=== PATIENT | female | born 1930 | race Caucasian/White ===

== ENCOUNTER → 2016-07-05 | Emergency (ER) | payer OTHER, BC ==
[2016-07-05 12:16] VITALS: BP 131/76; PULSE 60; TEMP 98; BMI 32.3
--- NOTE | 2016-07-05 13:06 | PDOC ---
History of Present Illness - General History Source: Patient Exam Limitations: No Limitations - History of Present Illness Initial Comments: 07/05/16 13:20 The patient is an 85 year old female with a significant past medical history of dementia, sent from [facility] to the Emergency Department with right ulna fracture. The patient is a poor historian due to dementia. The patients mcc was called and they are unsure of what happened. They report that the fall was unwitnessed. <Mamta Farah - Last Filed: 07/05/16 13:43> <Patria Rosa - Last Filed: 07/05/16 14:18> - General Chief Complaint: Injury Stated Complaint: BONE FRACTURE Past History <Mamta Farah - Last Filed: 07/05/16 13:43> - Past Medical History Cardiac Disorders: Yes (On Lasix) Dementia: Yes HTN: Yes - Surgical History Abdominal Surgery: No Appendectomy: No Cardiac Surgery: No Cholecystectomy: No Gastric Stapling: No GI Surgery: No Lung Surgery: No Neurologic Surgery: No Orthopedic Surgery: Yes - Immunization History Td Vaccination: No TDAP Vaccination: No Immunization Up to Date: Yes - Psycho/Social/Smoking Cessation Hx Suicidal Ideation: No Smoking Status: No Smoking History: Unknown if ever smoked Years of Tobacco Use: 0 Have you smoked in the past 12 months: No Number of Cigarettes Smoked Daily: 0 Cigars Per Day: 0 Information on smoking cessation initiated: No Hx Alcohol Use: No Drug/Substance Use Hx: No Hx Substance Use Treatment: No <Patria Rosa - Last Filed: 07/05/16 14:18> - Past Medical History Allergies/Adverse Reactions: Allergies Allergy/AdvReac Type Severity Reaction Status Date / Time No Known Allergies Allergy Unverified 10/28/12 11:31 Home Medications: Ambulatory Orders Docusate Sodium 100 mg PO DAILY 07/05/16 Furosemide [Lasix -] 40 mg PO DAILY 07/05/16 Trazodone HCl 50 mg PO HS 07/05/16 Review of Systems - Review of Systems Able to Perform ROS?: No (dementia) <Mamta Farah - Last Filed: 07/05/16 13:43> *Physical Exam - Vital Signs Last Vital Signs Temp Pulse Resp BP Pulse Ox 98.0 F 60 20 131/76 98 07/05/16 12:09 07/05/16 12:09 07/05/16 12:09 07/05/16 12:09 07/05/16 12:09 - Physical Exam Comments: 07/05/16 13:20 GENERAL: Well developed, well nourished. Awake. In no acute distress. HEENT: Normocephalic, atraumatic. PERRLA, EOMI. No conjunctival pallor. Sclera are non- icteric. Moist mucous membranes. Oropharynx is clear. NECK: Supple. Full ROM. No JVD. Carotid pulses 2+ and symmetric, without bruits. No thyromegaly. No lymphadenopathy. CARDIOVASCULAR: Regular rate and rhythm. No murmurs, rubs, or gallops. Distal pulses are 2+ and symmetric. PULMONARY: No evidence of respiratory distress. Lungs clear to auscultation bilaterally. No wheezing, rales or rhonchi. ABDOMINAL: Soft. Non-tender. Non-distended. No rebound or guarding. No organomegaly. Normoactive bowel sounds. MUSCULOSKELETAL Normal range of motion at all joints. No bony deformities. No CVA tenderness. No spinal tenderness. EXTREMITIES: Right distal forearm ecchymosis laterally. Tenderness to palpation. No obvious deformity. Neurovascularly intact. Full range of motion. Shoulder nontender and full range of motion. 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 No edema. No calf tenderness. SKIN: Warm and dry. Normal capillary refill. No rashes. No jaundice. NEUROLOGICAL: Alert, awake, appropriate. No deficits to light touch and temperature in face, upper extremities and lower extremities. No motor deficits in the in face, upper extremities and lower extremities. Normoreflexic in the upper and lower extremities. PSYCHIATRIC: Cooperative. Good eye contact. Appropriate mood and affect. <Mamta Farah - Last Filed: 07/05/16 13:43> - Vital Signs Last Vital Signs Temp Pulse Resp BP Pulse Ox 98.0 F 60 20 131/76 98 07/05/16 12:09 07/05/16 12:09 07/05/16 12:09 07/05/16 12:09 07/05/16 12:09 <Patria Rosa - Last Filed: 07/05/16 14:18> ED Treatment Course - RADIOLOGY Radiograph Interpretation: 07/05/16 13:43 XRay of wrist As reviewed by Dr. Eric Jones IMPRESSION: Distal ulnar fracture. <Mamta Farah - Last Filed: 07/05/16 13:43> Medical Decision Making - Medical Decision Making 07/05/16 13:04 85 yo F h/o dementia, htn in [facility] here today for fractured ulna. per nursing at facility, unsure what happened to pt. no witnessed fall, did not fall out of bed. was noted to have tenderness on exam so ordred xray, found to have distal ulna fx. 07/05/16 14:14minimally displaced right distal ulnar fracture. splinted in volar gutter splint. will transfer back to [facility]. follow up the [facility] in one week. <Patria Rosa - Last Filed: 07/05/16 14:18> *DC/Admit/Observation/Transfer - Attestations Scribe Attestion: 07/05/16 13:23 Documentation prepared by Mamta Farah, acting as emergency medical technician basic for Patria Rosa MD. <Mamta Farah - Last Filed: 07/05/16 13:43> - Discharge Dispostion Admit: No <Patria Rosa - Last Filed: 07/05/16 14:18> Diagnosis at time of Disposition: Ulnar fracture - Discharge Dispostion Disposition: [facility] - Referrals Referrals: Wil Lowry MD [Staff Physician] - - Patient Instructions Additional Instructions: wear sling on arm for comfort. wear splint until follow up with orthopedics. you can follow up with dr lowry see referral number. return for any problems or concerns. you can take tylenol 500 mg every 6 hours as needed for pain.
== END ==
LOC: JER 11:52
PROC: 2W3CX1Z Immobilization of Right Lower Arm using Splint (ICD-10-PCS; principal; 2016-07-05)
DX: S52.691A Other fracture of lower end of right ulna, initial encounter for closed fracture (principal); W19.XXXA Unspecified fall, initial encounter; Y93.9 Activity, unspecified; Y92.129 Unspecified place in nursing home as the place of occurrence of the external cause; I10 Essential (primary) hypertension; F03.90 Unspecified dementia, unspecified severity, without behavioral disturbance, psychotic disturbance, mood disturbance, and anxiety
CPT/HCPCS: 29125; 73110-TC-RT; 99282-25

== ENCOUNTER 2016-11-11 14:25 | Observation (INO) | payer OTHER, BC ==
--- NOTE | 2016-11-11 14:46 | PDOC ---
History of Present Illness - General Stated Complaint: PAIN Time Seen by Provider: 11/11/16 14:45 - History of Present Illness Initial Comments: 86 year old with CHF and dementia presenting from [facility] for worsening LLE edema. This has been ongoing since 10/09/16 with a fracture negative xray on 10/10/16 and Doppler on 10/10/16 showing extensive superficial ad deep vein thrombophlebitis. She hasn't been improving on Coumadin and Tramadol so the physician at [facility] would like to ave her further evaluated. She is severely demented so she cannot provide any history and this was all obtained through the documents sent with her. 11/11/16 17:01 Past History - Past Medical History Allergies/Adverse Reactions: Allergies Allergy/AdvReac Type Severity Reaction Status Date / Time No Known Allergies Allergy Unverified 10/28/12 11:31 Home Medications: Ambulatory Orders Docusate Sodium 100 mg PO DAILY 07/05/16 Furosemide [Lasix -] 40 mg PO DAILY 07/05/16 Trazodone HCl 50 mg PO HS 07/05/16 Cardiac Disorders: Yes (On Lasix) Dementia: Yes HTN: Yes - Surgical History Abdominal Surgery: No Appendectomy: No Cardiac Surgery: No Cholecystectomy: No Gastric Stapling: No GI Surgery: No Lung Surgery: No Neurologic Surgery: No Orthopedic Surgery: Yes - Immunization History Td Vaccination: No TDAP Vaccination: No Immunization Up to Date: Yes - Suicide/Smoking/Psychosocial Hx Smoking Status: No Smoking History: Unknown if ever smoked Years of Tobacco Use: 0 Have you smoked in the past 12 months: No Number of Cigarettes Smoked Daily: 0 Cigars Per Day: 0 Hx Alcohol Use: No Drug/Substance Use Hx: No Hx Substance Use Treatment: No Review of Systems - Review of Systems Able to Perform ROS?: No *Physical Exam - Physical Exam General Appearance: Yes: Nourished, Appropriately Dressed, Apparent Distress ( Intermittenly uncooperative and yelling.) HEENT: positive: EOMI, FIDEL, Normal Voice Neck: positive: Trachea midline, Normal Thyroid, Supple. negative: Tender, Rigid Respiratory/Chest: positive: Lungs Clear, Normal Breath Sounds. negative: Chest Tender, Respiratory Distress, Accessory Muscle Use Cardiovascular: positive: Regular Rhythm, Regular Rate Gastrointestinal/Abdominal: positive: Normal Bowel Sounds, Tender (Diffusely tender but unclear), Flat, Soft Extremity: positive: Pedal Edema (Bilateral pedal 2+ pitting edema in the RLE to the knee. 3+, 4+ Pitting edema in the RLE to the knee with tenderness in the calf and on the meial aspect of her upper thigh. ), Swelling, Calf Tenderness. negative: Normal Inspection Integumentary: positive: Normal Color, Dry, Warm Neurologic: positive: Alert, Confused, Disoriented. negative: Fully Oriented ( Completely demented), Normal Mood/Affect ED Treatment Course - LABORATORY CBC & Chemistry Diagram: 11/11/16 18:04 11/11/16 18:04 Medical Decision Making - Medical Decision Making 86 year old female with history of thrombophlebitis in her LLE presenting with continued pain and selling in her LLE despite Coumadin therapy and Tramadol. Her DVT scan was positive here. HEr PT/INR are therapeutic. 11/11/16 19:39 Patient started on heparin drip and admitted under Dr. Becker for further therapy and assessment. 11/11/16 20:42 *DC/Admit/Observation/Transfer Diagnosis at time of Disposition: Thrombophlebitis - Discharge Dispostion Condition at time of disposition: Stable Admit: Yes
[2016-11-11] MEDS ORDERED: HALOPERIDOL LACTATE 5 MG/ML IM ONE (15:43)
[2016-11-11] MEDS ORDERED: HALOPERIDOL LACTATE 5 MG/ML ONE (15:50)
--- NOTE | 2016-11-11 16:19 | PDOC ---
Attending Attestation - Resident Resident Name: Cb Mccord - ED Attending Attestation I have performed the following: I have examined & evaluated the patient, The case was reviewed & discussed with the resident, I agree w/resident's findings & plan, Exceptions are as noted - Medical Decision Making 11/11/16 16:18 A portion of this note was written by my scribe, under my supervision. Vital Signs Temp Pulse Resp BP Pulse Ox 97.4 F L 80 18 137/79 99 11/11/16 14:45 11/11/16 14:45 11/11/16 14:45 11/11/16 14:45 11/11/16 14:45 86 yo F c/ hx of dementia sent in for admission for LLE DVT. The patient has extensive proximal DVT, where was attempted at correction to be treated with coumadin. However, given the extensiveness, pt was sent in. Unable to obtain a history from patient given her dementia. Labs, ultrasound, anticoagulation, and admit. <Loco Garcia - Last Filed: 11/11/16 16:17> - HPI HPI: 11/11/16 16:19 86 yr old female, pmhx of DVT (on coumadin), dementia and HTN, who presents to the emergency [facility] from [facility] with swelling to the LLE since 10/09/16. She had a negative X Ray on 10/10/16. Doppler on 10/10/16 showed a LLE DVT and she has been on coumadin and tramadol for the pain. They sent her into the emergency room today because the swelling would not subside. Cannot obtain history from the patient secondary to dementia. - Physicial Exam PE: 11/11/16 16:19 GENERAL: Awake, alert, in no acute distress HEAD: No signs of trauma EYES: PERRLA, EOMI, sclera anicteric, conjunctiva clear ENT: Auricles normal inspection, hearing grossly normal, nares patent, oropharynx clear without exudates. Moist mucosa NECK: Normal ROM, supple, no lymphadenopathy, JVD, or masses LUNGS: Breath sounds equal, clear to auscultation bilaterally. No wheezes, and no crackles HEART: Regular rate and rhythm, normal S1 and S2, no murmurs, rubs or gallops ABDOMEN: Soft, nontender, normoactive bowel sounds. No guarding, no rebound. No masses EXTREMITIES: 3+ pitting edema of the LLE. Swollen left calf. Normal RLE. NEUROLOGICAL: Cranial nerves II through XII grossly intact. Normal speech, normal gait SKIN: Warm, Dry, normal turgor, no rashes or lesions noted. <Magalie Verma - Last Filed: 11/11/16 16:20>
[2016-11-11] MEDS ORDERED: LORazepam 2 MG/ML SDV VIAL ONE (17:06)
[2016-11-11] MEDS ORDERED: traZODone HCL 50 MG TABLET (FP) PO ONE (17:31)
[2016-11-11 18:36] LABS: BASOPHIL 0.2 % (0-2.0); EOSINOPHIL 2.8 % (0-4.5); MCH 28.6 pg (25.7-33.7); MCHC 32.9 g/dl (32.0-36.0); MEAN CELL VOLUME 86.9 fl (80-96); MEAN PLT VOLUME 7.8 fl (7.5-11.1); NEUTROPHILS 67.8 % (42.8-82.8); PLATELET COUNT 325 K/MM3 (134-434); RDW 15.4 % (11.6-15.6); WHITE BLOOD COUNT 7.9 K/mm3 (4.0-10.0)
[2016-11-11 18:59] LABS: INR 2.84 (0.82-1.09); PROTHROMBIN TIME (PATIENT) 31.9 SEC (9.98-11.88)
[2016-11-11 19:05] LABS: ALK PHOS 183 U/L (45-117); ANION GAP 6 (8-16); BILIRUBIN,TOTAL 0.5 mg/dL (0.2-1.0); CALCIUM 8.8 mg/dL (8.5-10.1); CO2 30 mmol/L (21-32); CREATININE 0.6 mg/dL (0.55-1.02); GLUCOSE,RANDOM 100 mg/dL (74-106); SGOT/AST 18 U/L (15-37); SGPT/ALT 22 U/L (12-78); TOT PROT 6.8 g/dl (6.4-8.2)
[2016-11-11] MEDS ORDERED: HEPARIN NA (PORCINE) 5,000 UNITS/ML 1ML VIAL IVPUSH PRN ×2 (20:14)
[2016-11-11] MEDS ORDERED: HEPARIN NA (PORCINE) 5,000 UNITS/ML 1ML VIAL ONE (20:40)
[2016-11-11] MEDS ORDERED: HEPARIN INFUSION - 500 ML IVPB ONE (20:41)
[2016-11-11] MEDS: HEPARIN - 25,000 UNIT in SODIUM CHLORIDE 495 ML IV SCH (21:32)
[2016-11-12] MEDS ORDERED: MAGNESIUM HYDROX 2400MG/30ML ORAL SUSPENSION 30 ML CUP PO PRN (02:30)
[2016-11-12] MEDS: HEPARIN - 25,000 UNIT in SODIUM CHLORIDE 495 ML IV SCH (06:51)
[2016-11-12 07:27] VITALS: BMI 38.8
--- NOTE | 2016-11-12 09:45 | HP ---
Admitting History and Physical - Primary Care Physician PCP: Remedios Mckay - Admission Chief Complaint: dvt History of Present Illness: Sent from [facility] for persistent pain to left leg Found to have DVT on 09/14/16-- started on Coumadin - she was sent here because she had persistent pain and swelling to left leg despite Coumadin and Lasix. 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 Cardiovascular: Yes: HTN Psych: Yes: Bipolar, Depression - Advance Directives Advance Directives: Yes: Health Care Proxy - Smoking History Smoking history: Unknown if ever smoked Have you smoked in the past 12 months: No Aproximately how many cigarettes per day: 0 - Alcohol/Substance Use Hx Alcohol Use: No Home Medications - Allergies Allergies/Adverse Reactions: Allergies Allergy/AdvReac Type Severity Reaction Status Date / Time No Known Allergies Allergy Unverified 10/28/12 11:31 - Home Medications Home Medications: Ambulatory Orders Docusate Sodium 200 mg PO HS 07/05/16 Trazodone HCl 50 mg PO HS 07/05/16 Acetaminophen [Tylenol] 650 mg PO Q6H PRN 11/11/16 Ascorbic Acid [Vitamin C] 500 mg PO DAILY 11/11/16 Calcium Carbonate [Oyster Shell Calcium] 500 mg PO DAILY 11/11/16 Cholecalciferol (Vitamin D3) [Vitamin D3 -] 1,000 unit PO DAILY 11/11/16 Magnesium Hydrox 2400MG/30Ml [Milk of Magnesia -] 30 ml PO DAILY PRN 11/11/16 Melatonin 1 mg PO DAILY 11/11/16 Multivit with Iron-Minerals [Compete] 1 tab PO DAILY 11/11/16 Sennosides [Senna] 2 tab PO HS 11/11/16 Warfarin Sodium [Coumadin] 2 mg PO DAILY 11/11/16 Review of Systems Unable to obtain ROS, reason: dementia Physical Examination Vital Signs: Vital Signs Temperature 97.4 F L 11/11/16 23:30 Pulse Rate 103 H 11/11/16 23:30 Respiratory Rate 18 11/12/16 06:00 Blood Pressure 129/63 11/11/16 23:30 O2 Sat by Pulse Oximetry (%) 94 L 11/12/16 06:00 Constitutional: Yes: No Distress, Calm Cardiovascular: Yes: Regular Rate and Rhythm Respiratory: Yes: CTA Bilaterally Gastrointestinal: Yes: Normal Bowel Sounds, Soft, Abdomen, Obese. No: Tenderness Extremities: Yes: Calf Tenderness (left), Erythema Edema: Yes Edema: LLE: 2+ Psychiatric: Yes: Alert Labs: Laboratory Last Values WBC 7.9 K/mm3 (4.0-10.0) D 11/11/16 18:04 RBC 4.59 M/mm3 (3.60-5.2) D 11/11/16 18:04 Hgb 13.1 GM/dL (10.7-15.3) D 11/11/16 18:04 Hct 39.9 % (32.4-45.2) D 11/11/16 18:04 MCV 86.9 fl (80-96) 11/11/16 18:04 MCH 28.6 pg (25.7-33.7) 11/11/16 18:04 MCHC 32.9 g/dl (32.0-36.0) 11/11/16 18:04 RDW 15.4 % (11.6-15.6) 11/11/16 18:04 Plt Count 325 K/MM3 (134-434) D 11/11/16 18:04 MPV 7.8 fl (7.5-11.1) 11/11/16 18:04 Neutrophils % 67.8 % (42.8-82.8) 11/11/16 18:04 Lymphocytes % 23.0 % (8-40) 11/11/16 18:04 Monocytes % 6.2 % (3.8-10.2) 11/11/16 18:04 Eosinophils % 2.8 % (0-4.5) 11/11/16 18:04 Basophils % 0.2 % (0-2.0) 11/11/16 18:04 PT with INR 27.80 SEC (9.98-11.88) H 11/12/16 11:12 INR 2.48 (0.82-1.09) H 11/12/16 11:12 PTT (Actin FS) 82.4 SECONDS (26.9-34.4) H D 11/12/16 04:00 Sodium 139 mmol/L (136-145) 11/11/16 18:04 Potassium 4.2 mmol/L (3.5-5.1) 11/11/16 18:04 Chloride 103 mmol/L (98-107) 11/11/16 18:04 Carbon Dioxide 30 mmol/L (21-32) D 11/11/16 18:04 Anion Gap 6 (8-16) L 11/11/16 18:04 BUN 23 mg/dL (7-18) H 11/11/16 18:04 Creatinine 0.6 mg/dL (0.55-1.02) D 11/11/16 18:04 Creat Clearance w eGFR > 60 (>60) 11/11/16 18:04 Random Glucose 100 mg/dL (74-106) 11/11/16 18:04 Calcium 8.8 mg/dL (8.5-10.1) 11/11/16 18:04 Total Bilirubin 0.5 mg/dL (0.2-1.0) D 11/11/16 18:04 AST 18 U/L (15-37) D 11/11/16 18:04 ALT 22 U/L (12-78) D 11/11/16 18:04 Alkaline Phosphatase 183 U/L (45-117) H D 11/11/16 18:04 C-Reactive Protein 4.0 MG/DL (0.00-0.3) H 11/11/16 18:04 B-Natriuretic Peptide 192.07 pg/ml (5-450) 11/11/16 18:04 Total Protein 6.8 g/dl (6.4-8.2) 11/11/16 18:04 Albumin 3.0 g/dl (3.4-5.0) L D 11/11/16 18:04 Imaging - Results Ultrasound: Report Reviewed EKG: Image Reviewed (NSR) Problem List - Problems (1) Thrombophlebitis Code(s): I80.9 - PHLEBITIS AND THROMBOPHLEBITIS OF UNSPECIFIED SITE (2) Dvt femoral (deep venous thrombosis) Code(s): I82.419 - ACUTE EMBOLISM AND THROMBOSIS OF UNSPECIFIED FEMORAL VEIN (3) DVT femoral (deep venous thrombosis) with thrombophlebitis Code(s): I82.419 - ACUTE EMBOLISM AND THROMBOSIS OF UNSPECIFIED FEMORAL VEIN (4) DVT of axillary vein, acute left Code(s): I82.A12 - ACUTE EMBOLISM AND THROMBOSIS OF LEFT AXILLARY VEIN Assessment/Plan plan Pt on Coumadin already placed on Heparin GTT in ER INR is therapeutic--- dc Heparin drip continue with Coumadin consult with Vascular surgeon
[2016-11-12 11:25] LABS: INR 2.48 (0.82-1.09); PROTHROMBIN TIME (PATIENT) 27.8 SEC (9.98-11.88)
[2016-11-12] MEDS ORDERED: LORazepam 2 MG/ML SDV VIAL IVPUSH PRN (11:25)
[2016-11-12] MEDS: QUEtiapine FUMARATE 25 MG TABLET (FP) PO SCH (11:53)
--- NOTE | 2016-11-12 13:05 | EKG ---
Test Reason : Blood Pressure : / mmHG Vent. Rate : 075 BPM Atrial Rate : 075 BPM P-R Int : 166 ms QRS Dur : 082 ms QT Int : 424 ms P-R-T Axes : 048 042 060 degrees QTc Int : 473 ms POOR DATA QUALITY, INTERPRETATION MAY BE ADVERSELY AFFECTED NORMAL SINUS RHYTHM NORMAL ECG WHEN COMPARED WITH ECG OF 14-JUN-2009 00:44, NONSPECIFIC T WAVE ABNORMALITY NOW EVIDENT IN ANTERIOR LEADS Confirmed by TISH DESHPANDE, CALLIE ([id number]) on 11/12/2016 1:05:09 PM Referred By: Confirmed By:CALLIE WINSTON MD
--- NOTE | 2016-11-12 13:24 | CONSULT ---
Consult - Alcohol/Substance Use Hx Alcohol Use: No - Smoking History Smoking history: Unknown if ever smoked Have you smoked in the past 12 months: No Aproximately how many cigarettes per day: 0 Home Medications - Allergies Allergies/Adverse Reactions: Allergies Allergy/AdvReac Type Severity Reaction Status Date / Time No Known Allergies Allergy Unverified 10/28/12 11:31 - Home Medications Home Medications: Ambulatory Orders Docusate Sodium 200 mg PO HS 07/05/16 Trazodone HCl 50 mg PO HS 07/05/16 Acetaminophen [Tylenol] 650 mg PO Q6H PRN 11/11/16 Ascorbic Acid [Vitamin C] 500 mg PO DAILY 11/11/16 Calcium Carbonate [Oyster Shell Calcium] 500 mg PO DAILY 11/11/16 Cholecalciferol (Vitamin D3) [Vitamin D3 -] 1,000 unit PO DAILY 11/11/16 Magnesium Hydrox 2400MG/30Ml [Milk of Magnesia -] 30 ml PO DAILY PRN 11/11/16 Melatonin 1 mg PO DAILY 11/11/16 Multivit with Iron-Minerals [Compete] 1 tab PO DAILY 11/11/16 Sennosides [Senna] 2 tab PO HS 11/11/16 Warfarin Sodium [Coumadin] 2 mg PO DAILY 11/11/16 Physical Exam Vital Signs: Vital Signs Temperature 98.3 F 11/12/16 10:56 Pulse Rate 92 H 11/12/16 10:56 Respiratory Rate 18 11/12/16 10:56 Blood Pressure 112/83 11/12/16 10:56 O2 Sat by Pulse Oximetry (%) 94 L 11/12/16 06:00 Assessment/Plan VAscular Surgery Sent from [facility] for persistent pain to left leg Found to have DVT on 09/14/16-- started on Coumadin - she was sent here because she had persistent pain and swelling to left leg despite Coumadin and Lasix. She had repeat sono done which showed extensive DVT on left leg and thrombophlebitis Started on Heparin drip here - Advance Directives Advance Directives: Yes: Health Care Proxy - Smoking History Smoking history: Unknown if ever smoked Have you smoked in the past 12 months: No Aproximately how many cigarettes per day: 0 - Alcohol/Substance Use Hx Alcohol Use: No Home Medications - Allergies Allergies/Adverse Reactions: Allergies Allergy/AdvReac Type Severity Reaction Status Date / Time No Known Allergies Allergy Unverified 10/28/12 11:31 - Home Medications Home Medications: Ambulatory Orders Docusate Sodium 200 mg PO HS 07/05/16 Trazodone HCl 50 mg PO HS 07/05/16 Acetaminophen [Tylenol] 650 mg PO Q6H PRN 11/11/16 Ascorbic Acid [Vitamin C] 500 mg PO DAILY 11/11/16 Calcium Carbonate [Oyster Shell Calcium] 500 mg PO DAILY 11/11/16 Cholecalciferol (Vitamin D3) [Vitamin D3 -] 1,000 unit PO DAILY 11/11/16 Magnesium Hydrox 2400MG/30Ml [Milk of Magnesia -] 30 ml PO DAILY PRN 11/11/16 Melatonin 1 mg PO DAILY 11/11/16 Multivit with Iron-Minerals [Compete] 1 tab PO DAILY 11/11/16 Sennosides [Senna] 2 tab PO HS 11/11/16 Warfarin Sodium [Coumadin] 2 mg PO DAILY 11/11/16 PE Head - NC/AT Lung - cTA Heart - RRR abd -soft,nt,nd, ext - warm, pink. Palpalble pulses. LLE warm,. no pain could be elicited A/P Left CFV, DFV DVT. 1. Continue AC. IV heparin to coumadin. No other treatment is necessary. Leg looks stable. AC for 6 months. Howard Pickett DO
[2016-11-12] MEDS ORDERED: WARFARIN NA 2 MG TABLET (UD) PO SCH (18:00)
[2016-11-12] MEDS ORDERED: traZODone HCL 50 MG TABLET (FP) PO SCH (22:00)
[2016-11-12] MEDS ORDERED: SENNOSIDES 8.6MG TABLET (FP) PO SCH (22:00)
[2016-11-12] MEDS ORDERED: PT OWN MED DRAWER 7, Y5N ONE (22:16)
[2016-11-13 07:28] LABS: MCH 28.3 pg (25.7-33.7); MCHC 32.6 g/dl (32.0-36.0); MEAN CELL VOLUME 86.7 fl (80-96); MEAN PLT VOLUME 7.9 fl (7.5-11.1); PLATELET COUNT 297 K/MM3 (134-434); RDW 15.6 % (11.6-15.6)
[2016-11-13 07:48] LABS: INR 2.17 (0.82-1.09); PROTHROMBIN TIME (PATIENT) 24.3 SEC (9.98-11.88)
--- NOTE | 2016-11-13 09:45 | DS ---
Physical Examination Vital Signs: Vital Signs Temperature 97.1 F L 11/13/16 06:00 Pulse Rate 85 11/13/16 06:00 Respiratory Rate 20 11/13/16 06:00 Blood Pressure 150/90 11/13/16 06:00 O2 Sat by Pulse Oximetry (%) 94 L 11/13/16 00:00 Constitutional: Yes: No Distress, Calm Cardiovascular: Yes: Regular Rate and Rhythm Respiratory: Yes: CTA Bilaterally Gastrointestinal: Yes: Normal Bowel Sounds, Soft, Abdomen, Obese Edema: Yes Labs: CBC, BMP 11/13/16 06:05 Discharge Summary Reason For Visit: THROMBOPHLEBITIS Current Active Problems DVT femoral (deep venous thrombosis) with thrombophlebitis (Acute) DVT of axillary vein, acute left (Acute) Dvt femoral (deep venous thrombosis) (Acute) Thrombophlebitis (Acute) Hospital Course: DVT and thrombophlebitis seen by Vascular On Coumadin INR therapeutic no further interventions pt stable for dc to NH Condition: Stable - Instructions Referrals: Edenilson Walters [Primary Care Provider] - Disposition: [facility] - Home Medications Comprehensive Discharge Medication List: Ambulatory Orders Docusate Sodium 200 mg PO HS 07/05/16 Trazodone HCl 50 mg PO HS 07/05/16 Acetaminophen [Tylenol] 650 mg PO Q6H PRN 11/11/16 Ascorbic Acid [Vitamin C] 500 mg PO DAILY 11/11/16 Calcium Carbonate [Oyster Shell Calcium] 500 mg PO DAILY 11/11/16 Cholecalciferol (Vitamin D3) [Vitamin D3 -] 1,000 unit PO DAILY 11/11/16 Magnesium Hydrox 2400MG/30Ml [Milk of Magnesia -] 30 ml PO DAILY PRN 11/11/16 Melatonin 1 mg PO DAILY 11/11/16 Multivit with Iron-Minerals [Compete] 1 tab PO DAILY 11/11/16 Sennosides [Senna] 2 tab PO HS 11/11/16 Warfarin Sodium [Coumadin] 2 mg PO DAILY 11/11/16
[2016-11-13] MEDS: QUEtiapine FUMARATE 25 MG TABLET (FP) PO SCH (10:01)
[2016-11-13 14:11] VITALS: BP 123/53; PULSE 98; TEMP 97.5
== END 2016-11-13 11:59 ==
LOC: JER 14:25 → JERBED 20:45 → J5S 23:00
PROVIDERS: ADMIT Internal Medicine; ATTEND Internal Medicine
PROC: 3E023GC Introduction of Other Therapeutic Substance into Muscle, Percutaneous Approach (ICD-10-PCS; principal; 2016-11-11)
DX: I80.9 Phlebitis and thrombophlebitis of unspecified site (principal); I50.9 Heart failure, unspecified; I82.419 Acute embolism and thrombosis of unspecified femoral vein; I82.A12 Acute embolism and thrombosis of left axillary vein; I10 Essential (primary) hypertension; F03.90 Unspecified dementia, unspecified severity, without behavioral disturbance, psychotic disturbance, mood disturbance, and anxiety; Z79.01 Long term (current) use of anticoagulants
CPT/HCPCS: 36415; 80053; 83880; 85025; 85027; 85610; 85730; 86140; 93005; 93010; 93971-TC; 96372; 99284-25; G0378; J1644

== ENCOUNTER 2016-12-21 09:25 | Inpatient (IN) | payer OTHER, BC ==
--- NOTE | 2016-12-21 10:16 | PDOC ---
History of Present Illness - General Chief Complaint: Rectal Bleed Stated Complaint: RECTAL BLEED Time Seen by Provider: 12/21/16 09:43 - History of Present Illness Initial Comments: 12/21/16 10:15 86 F with h/o CHF, dementia, and DVT on coumadin, presenting to ER with rectal bleeding. Pt was sent from [facility] with blood noted in her diaper. Son is at bedside and states that he [facility] a [facility] that she started having blood in her stool and also had a "lump in her side". He is unable to report any additional history. Pt herself is unable to contribute any history 2/2 severe dementia. Past History - Past Medical History Allergies/Adverse Reactions: Allergies Allergy/AdvReac Type Severity Reaction Status Date / Time No Known Allergies Allergy Unverified 12/21/16 09:31 Home Medications: Ambulatory Orders Docusate Sodium 200 mg PO HS 07/05/16 Trazodone HCl 25 mg PO BID 07/05/16 Ascorbic Acid [Vitamin C] 500 mg PO DAILY 11/11/16 Calcium Carbonate [Oyster Shell Calcium] 500 mg PO DAILY 11/11/16 Cholecalciferol (Vitamin D3) [Vitamin D3 -] 1,000 unit PO DAILY 11/11/16 Magnesium Hydrox 2400MG/30Ml [Milk of Magnesia -] 30 ml PO DAILY PRN 11/11/16 Melatonin 1 mg PO DAILY 11/11/16 Multivit with Iron-Minerals [Compete] 1 tab PO DAILY 11/11/16 Sennosides [Senna] 2 tab PO HS 11/11/16 Warfarin Sodium [Coumadin] 2 mg PO DAILY 11/11/16 Cardiac Disorders: Yes (was on Lasix) COPD: No Dementia: Yes HTN: Yes - Surgical History Abdominal Surgery: No Appendectomy: No Cardiac Surgery: No Cholecystectomy: No Gastric Stapling: No GI Surgery: No Lung Surgery: No Neurologic Surgery: No Orthopedic Surgery: Yes - Immunization History Td Vaccination: No TDAP Vaccination: No Immunization Up to Date: Yes - Suicide/Smoking/Psychosocial Hx Smoking Status: No Smoking History: Unknown if ever smoked Years of Tobacco Use: 0 Have you smoked in the past 12 months: No Number of Cigarettes Smoked Daily: 0 Cigars Per Day: 0 Information on smoking cessation initiated: No Hx Alcohol Use: No Drug/Substance Use Hx: No Hx Substance Use Treatment: No Review of Systems - Review of Systems Able to Perform ROS?: No *Physical Exam - Vital Signs Last Vital Signs Temp Pulse Resp BP Pulse Ox 97.5 F L 86 16 121/101 96 12/21/16 09:31 12/21/16 09:31 12/21/16 09:31 12/21/16 09:31 12/21/16 09:31 - Physical Exam Comments: 12/21/16 10:20 "GENERAL: Awake, alert, in no acute distress HEAD: No signs of trauma EYES: PERRLA, EOMI, sclera anicteric, conjunctiva clear ENT: Auricles normal inspection, hearing grossly normal, nares patent, oropharynx clear without exudates. Moist mucosa NECK: Nontender, no stepoffs, Normal ROM, supple, no lymphadenopathy, JVD, or masses LUNGS: Breath sounds equal, clear to auscultation bilaterally. No wheezes, and no crackles HEART: Regular rate and rhythm, normal S1 and S2, no murmurs, rubs or gallops ABDOMEN: Obese, palpable mass on R side of abdomen, abdomen diffusely tender to palpation, no rebound/guarding RECTAL: Brown stool with red streaks EXTREMITIES: Normal range of motion, no edema. No clubbing or cyanosis. No cords, erythema, or tenderness NEUROLOGICAL: Cranial nerves II through XII intact. 5/5 strength and sensation in all extremities, Normal speech, normal gait SKIN: Warm, Dry, normal turgor, no rashes or lesions noted. ED Treatment Course - LABORATORY CBC & Chemistry Diagram: 12/21/16 10:10 12/21/16 10:10 - RADIOLOGY Radiology Studies Ordered: Category Date Time Status ABDOMEN & PELVIS CT WITH CONTR [CT] Stat CT Scan 12/21/16 10:12 Ordered Medical Decision Making - Medical Decision Making 12/21/16 10:20 86 F with rectal bleed on coumadin, also found to have diffuse abdominal tenderness and palpable mass that is concerning for hernia. Pt's rectal exam notable for brown stool with red streaks. Likely lower GI bleed. Pt with no melena to suggest upper GI source. - Labs, T&S, coags - CTAP - Surgery consult 12/21/16 13:32 CT reveals stercoral colitis. No evidence of incarcerated hernia. Fecal impaction also noted on CT. However, pt actively stooling during my exam. Rectal exam did not reveal hard impacted stool. 12/21/16 14:19 Dr. Becker accepts admission. GI consult placed to Dr. Brown Case discussed in detail with admitting physician including history, physical exam and ancillary studies. Admitting physician has assumed care for the patient and will follow all pending diagnostics and complete the evaluation and treatment. *DC/Admit/Observation/Transfer Diagnosis at time of Disposition: GI bleed - Discharge Dispostion Admit: Yes - Referrals Referrals: Edenilson Walters [Primary Care Provider] - - Patient Instructions - Post Discharge Activity - Attestations Physician Attestion: 12/21/16 14:19 I, Dr. Wil Dixon MD, attest that this document has been prepared under my direction and personally reviewed by me in its entirety. I further attest, that it accurately reflects all work, treatment, procedures and medical decision -making performed by me.
[2016-12-21 10:32] LABS: BASOPHIL 0.1 % (0-2.0); EOSINOPHIL 1.4 % (0-4.5); MCH 27.6 pg (25.7-33.7); MCHC 32.1 g/dl (32.0-36.0); MEAN CELL VOLUME 85.9 fl (80-96); MEAN PLT VOLUME 8.2 fl (7.5-11.1); NEUTROPHILS 84.9 % (42.8-82.8); PLATELET COUNT 451 K/MM3 (134-434); RDW 15.3 % (11.6-15.6); WHITE BLOOD COUNT 14.2 K/mm3 (4.0-10.0)
[2016-12-21 10:53] LABS: INR 2.32 (0.82-1.09); PROTHROMBIN TIME (PATIENT) 26.2 SEC (9.98-11.88)
[2016-12-21 10:58] LABS: ALBUMIN 3.1 g/dl (3.4-5.0); ANION GAP 11 (8-16); BILIRUBIN,TOTAL 0.6 mg/dL (0.2-1.0); CALCIUM 8.9 mg/dL (8.5-10.1); CO2 26 mmol/L (21-32); CREATININE 0.8 mg/dL (0.55-1.02); GLUCOSE,RANDOM 107 mg/dL (74-106); SGOT/AST 17 U/L (15-37); SGPT/ALT 23 U/L (12-78); TOT PROT 7.1 g/dl (6.4-8.2)
[2016-12-21 10:59] LABS: CPK 63 IU/L (26-192); TROPONIN I < 0.02 ng/ml (0.00-0.05)
[2016-12-21 10:59] LABS: ALK PHOS 222 U/L (45-117)
[2016-12-21] MEDS ORDERED: SODIUM CHLORIDE 1,000 ML IV SCH (11:45)
[2016-12-21 15:52] VITALS: BMI 32.2
--- NOTE | 2016-12-21 16:36 | CON.GI ---
Consult Consult Specialty:: Gastroenterology Referred by:: Dr Becker Reason for Consultation:: Rectal bleeding - History of Present Illness Chief Complaint: The patient has OMS and cannot offer any significant history History of Present Illness: 86F with OMS is transferred from the [facility] after an episode of rectal bleeding. The son informed the ER staff that he got a call from the [place] reporting that Suzanne had rectal bleeding and a " lump in her abdomen". Suzanne is conversant but cannot give pertinent responses. CT scan reveals a fecal impaction involving the rectum up to the sigmoid which is compressing her left ureter and causing left hydronephrosis. She is on Coumadin for ? DVT. Much of the history was obtained from the medical record and her son,Matt. He believes that she had a colonoscopy remotely. 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 - has not ambulated since then - Alcohol/Substance Use Hx Alcohol Use: Yes (rare but in the past) - Smoking History Smoking history: Former smoker Have you smoked in the past 12 months: No Aproximately how many cigarettes per day: 0 If you are a former smoker, when did you quit?: quit age 62 - Social History Usual Living Arrangement: [facility] ADL: Support Services 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 Place of : [facility] History of Recent Travel: No Home Medications - Allergies Allergies/Adverse Reactions: Allergies Allergy/AdvReac Type Severity Reaction Status Date / Time No Known Allergies Allergy Unverified 12/21/16 09:31 - Home Medications Home Medications: Ambulatory Orders Docusate Sodium 200 mg PO HS 07/05/16 Trazodone HCl 25 mg PO BID 07/05/16 Ascorbic Acid [Vitamin C] 500 mg PO DAILY 11/11/16 Calcium Carbonate [Oyster Shell Calcium] 500 mg PO DAILY 11/11/16 Cholecalciferol (Vitamin D3) [Vitamin D3 -] 1,000 unit PO DAILY 11/11/16 Magnesium Hydrox 2400MG/30Ml [Milk of Magnesia -] 30 ml PO DAILY PRN 11/11/16 Melatonin 1 mg PO DAILY 11/11/16 Multivit with Iron-Minerals [Compete] 1 tab PO DAILY 11/11/16 Sennosides [Senna] 2 tab PO HS 11/11/16 Warfarin Sodium [Coumadin] 2 mg PO DAILY 11/11/16 Family Disease History - Family Disease History Other Family History: no cancer Review of Systems Findings/Remarks: Patient has OMS Physical Exam-GI Vital Signs: Vital Signs Temperature 97.5 F L 12/21/16 09:31 Pulse Rate 99 H 12/21/16 15:38 Respiratory Rate 18 12/21/16 15:38 Blood Pressure 121/60 12/21/16 15:38 O2 Sat by Pulse Oximetry (%) 97 12/21/16 15:38 Laboratory Tests 12/21/16 12/21/16 12/21/16 10:10 10:10 10:10 WBC 14.2 H D Hgb 13.7 D PT with INR 26.20 H INR 2.32 H BUN 19 H Creatinine 0.8 D Total Bilirubin 0.6 AST 17 ALT 23 Alkaline Phosphatase 222 H D Albumin 3.1 L CBC,CMP WBC 14.2 K/mm3 (4.0-10.0) H D 12/21/16 10:10 RBC 4.97 M/mm3 (3.60-5.2) 12/21/16 10:10 Hgb 13.7 GM/dL (10.7-15.3) D 12/21/16 10:10 Hct 42.7 % (32.4-45.2) D 12/21/16 10:10 MCV 85.9 fl (80-96) 12/21/16 10:10 MCH 27.6 pg (25.7-33.7) 12/21/16 10:10 MCHC 32.1 g/dl (32.0-36.0) 12/21/16 10:10 RDW 15.3 % (11.6-15.6) 12/21/16 10:10 Plt Count 451 K/MM3 (134-434) H D 12/21/16 10:10 MPV 8.2 fl (7.5-11.1) 12/21/16 10:10 Neutrophils % 84.9 % (42.8-82.8) H D 12/21/16 10:10 Lymphocytes % 7.1 % (8-40) L D 12/21/16 10:10 Monocytes % 6.5 % (3.8-10.2) 12/21/16 10:10 Eosinophils % 1.4 % (0-4.5) 12/21/16 10:10 Basophils % 0.1 % (0-2.0) 12/21/16 10:10 Sodium 140 mmol/L (136-145) 12/21/16 10:10 Potassium 4.2 mmol/L (3.5-5.1) 12/21/16 10:10 Chloride 103 mmol/L (98-107) 12/21/16 10:10 Carbon Dioxide 26 mmol/L (21-32) 12/21/16 10:10 Anion Gap 11 (8-16) 12/21/16 10:10 BUN 19 mg/dL (7-18) H 12/21/16 10:10 Creatinine 0.8 mg/dL (0.55-1.02) D 12/21/16 10:10 Creat Clearance w eGFR > 60 (>60) 12/21/16 10:10 Random Glucose 107 mg/dL (74-106) H 12/21/16 10:10 Lactic Acid 2.6 mmol/L (0.4-2.0) H* 12/21/16 10:10 Calcium 8.9 mg/dL (8.5-10.1) 12/21/16 10:10 Total Bilirubin 0.6 mg/dL (0.2-1.0) 12/21/16 10:10 AST 17 U/L (15-37) 12/21/16 10:10 ALT 23 U/L (12-78) 12/21/16 10:10 Alkaline Phosphatase 222 U/L (45-117) H D 12/21/16 10:10 Creatine Kinase 63 IU/L (26-192) 12/21/16 09:56 Troponin I < 0.02 ng/ml (0.00-0.05) 12/21/16 09:56 Total Protein 7.1 g/dl (6.4-8.2) 12/21/16 10:10 Albumin 3.1 g/dl (3.4-5.0) L 12/21/16 10:10 Current Medications Generic Name Dose Route Start Last Admin Trade Name Delmis PRN Reason Stop Dose Admin Sodium Chloride 1,000 mls @ 125 mls/hr 12/21/16 11:45 12/21/16 12:04 Normal Saline - IV 125 mls/hr ASDIR WILMER Administration Constitutional: Yes: Calm Eyes: Yes: WNL HENT: Yes: WNL Neck: Yes: Supple Cardiovascular: Yes: Regular Rate and Rhythm Respiratory: Yes: CTA Bilaterally Gastrointestinal Inspection: Yes: Scars (oblique RUQ inicison with lateral hernia, abdominoplasty incision) ...Auscultate: Yes: Normoactive Bowel Sounds (high pitched) ...Palpate: Yes: Firm/Rigid, Other (nontender) ...Percussion: Yes: Tympanitic ...Rectal Exam: Yes: Guaiac Positive (fecally impacted, brown guaiac positive stool but no mass or fresh blood), Hemorrhoids/External, Sphincter Tone Poor Edema: Yes Edema: LLE: 2+, RLE: Trace Neurological: Yes: Alert, Confusion Labs: CBC, BMP 12/21/16 10:10 12/21/16 10:10 INR, PTT INR 2.32 (0.82-1.09) H 12/21/16 10:10 Imaging - Results Cat Scan: Report Reviewed (Juan David Dias Name: SUZANNE ORTIZ DEPARTMENT OF RADIOLOGY Phys: Rosi Mix MD : [id number] Age: 86 Sex: F [facility] Acct: [id number] Loc: [address] [facility]am [facility]: [facility] [place] [address] Unit Number: [id number] EXAM#: TYPE/EXAM: RESULT: [id number] CT/ ABDOMEN PELVIS CT WITH CONTR EXAM: CT abdomen and pelvis with IV contrast. INDICATION: Abdominal pain. TECHNIQUE: Contiguous axial CT images of the abdomen and pelvis obtained without oral contrast, following intravenous administration of 93 mL of Omnipaque 350 contrast. Coronal reconstructions obtained. COMPARISON: None. FINDINGS: There is subpleural reticulation /fibrotic changes in the left upper lobe. There are dependent changes in both lung bases. There is severe coronary artery calcific atherosclerosis. Normal liver size and contour. Subcentimeter hypodensity in the left hepatic lobe is too small to characterize the gallbladder is nonvisualized, presumably surgically absent. Please correlate with history. The common bile duct is dilated, measuring up to 10 mm in diameter. Pancreas is unremarkable. Normal size spleen with no focal lesions. There is no adrenal gland mass. There are multiple bilateral renal cysts. There is moderate left hydronephrosis. The left ureter is distended up to the psoas muscle. Normal caliber abdominal aorta with moderate calcified and noncalcified atheromatous plaque. There is large volume of impacted stool within the distended rectum, extending into the sigmoid colon. There is thickening of the rectal wall with perirectal and presacral fat stranding. Distended sigmoid colon likely compresses the left ureter, which is dilated upstream. The urinary bladder is displaced by the distended rectum and sigmoid colon. The uterus is surgically absent. There is no free intraperitoneal air. There is osseous demineralization. There are degenerative changes in the spine, sacroiliac joints and hips. 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 Prominence soft tissue surrounding this fracture may be chronic granulation tissue. Intramedullary annelise is present in the proximal left femoral diaphysis. There is multilevel canal and neural foraminal stenosis in the lumbar spine. There are calcified injection granulomas within bilateral gluteal region fat. There are postsurgical changes in the anterior abdominal wall. IMPRESSION: 1. Large volume of impacted stool within a significantly distended rectum extending into the sigmoid colon with suggestion of stercoral proctocolitis. Fecal disimpaction is recommended. 2. Distended sigmoid colon compresses the left ureter as it crosses over the psoas muscle with mild upstream distention of the left ureter and moderate left hydronephrosis. Follow-up renal sonogram is recommended to document resolution of the hydronephrosis a few days after fecal disimpaction. 3. Please correlate for history of cholecystectomy. Dilatation of the common bile duct measuring up to 10 mm may be physiologic change postcholecystectomy. Please correlate with biliary markers and LFTs. 4. 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 Reported By: Shiela North MD 12/21/16 1314 ROSI MIX Technologist: Canelo Ramirez Transcribed Date/Time: 12/21/16 1314 Scientific Systems Analyst: Shiela North MD Printed Date/Time: By: Signed by: Shiela North Signed on: 21-Dec-2016 13:15) Problem List - Problems (1) Fecal impaction of colon Assessment/Plan: Suzanne has a significant fecal impaction causing colon distension and aggravating her incisional hernia and causing left hydronephrosis by impacted sigmoid compression. I have relieved her impaction manually and administered 3 mineral oil enemas with the patient in left lateral decubitus position. Her inicsional hernia and abdominal distension has improved after disempaction. I will now start Miralax QID as the patient is not likely to drink Golytely. Her son confirms that she has been drinking thin liquids without difficulty. He does not want his mother to undergo a colonoscopy for colon cancer screening. Code(s): K56.41 - FECAL IMPACTION (2) Rectal bleed Assessment/Plan: I found no evidence for a stercoral ulcer during disempaction. Given her normal Hb I believe that the bleeding was hemorrhoidal and aggravated by her impacted stool. Coumadin should be held and she needs to be observed for rebleeding. Code(s): K62.5 - HEMORRHAGE OF ANUS AND RECTUM (3) External hemorrhoid, bleeding Assessment/Plan: Suspect this to be the source of bleeding Code(s): K64.4 - RESIDUAL HEMORRHOIDAL SKIN TAGS (4) Hydronephrosis, left Assessment/Plan: Will hopefully respond to the disempaction but advise urological consultation Code(s): N13.30 - UNSPECIFIED HYDRONEPHROSIS (5) Incisional hernia of anterior abdominal wall without obstruction or gangrene Assessment/Plan: Has improved after manual disempaction. It is not tender or compromised Code(s): K43.2 - INCISIONAL HERNIA WITHOUT OBSTRUCTION OR GANGRENE (6) Closed fracture of hip with nonunion Assessment/Plan: I suspect that this reflects osteoporosis and is the source of her elevated alkaline phosphatase. Will confirm with GGT. Code(s): S72.009K - FX UNSP PART OF NK OF UNSP FEMR, SUBS FOR CLOS FX W NONUNION
[2016-12-21] MEDS: DEXTROSE 5%-WATER - 1,000 ML IV SCH (17:42)
[2016-12-21] MEDS ORDERED: traMADol HCL 50 MG TABLET PO PRN (20:47)
[2016-12-21] MEDS ORDERED: MAGNESIUM HYDROX 2400MG/30ML ORAL SUSPENSION 30 ML CUP PO PRN (20:48)
[2016-12-21] MEDS: traZODone HCL 50 MG TABLET (FP) PO SCH (21:53)
[2016-12-21] MEDS: SENNOSIDES 8.6MG TABLET (FP) PO SCH (21:53)
[2016-12-21] MEDS: MELATONIN 1 MG TABLET PO SCH (21:54)
[2016-12-21] MEDS: POLYETHYLENE GLYCOL 3350 119 GM BTL PO SCH (21:55)
[2016-12-22] MEDS: POLYETHYLENE GLYCOL 3350 119 GM BTL PO SCH ×3 (06:51→21:05)
[2016-12-22 08:09] LABS: BASOPHIL 0.2 % (0-2.0); EOSINOPHIL 2.9 % (0-4.5); MCH 27.7 pg (25.7-33.7); MCHC 31.7 g/dl (32.0-36.0); MEAN CELL VOLUME 87.4 fl (80-96); MEAN PLT VOLUME 7.8 fl (7.5-11.1); NEUTROPHILS 72.9 % (42.8-82.8); PLATELET COUNT 369 K/MM3 (134-434); WHITE BLOOD COUNT 9.6 K/mm3 (4.0-10.0)
[2016-12-22 08:26] LABS: ALBUMIN 2.3 g/dl (3.4-5.0); ANION GAP 9 (8-16); CALCIUM 8.2 mg/dL (8.5-10.1); CO2 29 mmol/L (21-32); GLUCOSE,RANDOM 91 mg/dL (74-106)
[2016-12-22 08:35] LABS: ALK PHOS 168 U/L (45-117); BILIRUBIN,TOTAL 0.7 mg/dL (0.2-1.0); CREATININE 0.8 mg/dL (0.55-1.02); FERRITIN 224.449 ng/ml (6.9-282.5); SGOT/AST 14 U/L (15-37); SGPT/ALT 19 U/L (12-78); TOT PROT 5.3 g/dl (6.4-8.2)
[2016-12-22] MEDS ORDERED: ACETAMINOPHEN 325 MG TABLET (FP) PO PRN (09:02)
--- NOTE | 2016-12-22 09:04 | HP ---
Admitting History and Physical - Primary Care Physician PCP: Remedios Mckay - Admission Chief Complaint: send from [facility] due to gi bleed History of Present Illness: Pt 86 F with h/o CHF, dementia, and DVT on coumadin, presenting to ER with rectal bleeding. Pt was sent from [facility] with blood noted in her diaper. pt admitted to floor guiac +ve coumadin held ct scan done in er -- severe constipation. pt manually disimpacted by Dr. Lopez . started on miralalx pt having bowel movements now case was discussed with er physician last night. pt seen/ examined today comfortable no distress poor historian. 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 Cardiovascular: Yes: Deep Vein Thrombosis (but not confirmed by 10/10/16 duplex doppler, has chronic LLE edema), HTN Gastrointestinal: Yes: Constipation, GERD Psych: Yes: Bipolar, Depression - Past Surgical History Past Surgical History: Yes: Cholecystectomy, Hysterectomy, Joint Replacement ( bilateral knee replacments) - Advance Directives Advance Directives: Yes: DNR - Smoking History Smoking history: Former smoker Have you smoked in the past 12 months: No Aproximately how many cigarettes per day: 0 If you are a former smoker, when did you quit?: quit age 62 - Alcohol/Substance Use Hx Alcohol Use: Yes (rare but in the past) - Social History ADL: Support Services 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 Travel: No Home Medications - Allergies Allergies/Adverse Reactions: Allergies Allergy/AdvReac Type Severity Reaction Status Date / Time No Known Allergies Allergy Unverified 12/21/16 09:31 - Home Medications Home Medications: Ambulatory Orders Docusate Sodium 200 mg PO HS 07/05/16 Trazodone HCl 25 mg PO BID 07/05/16 Ascorbic Acid [Vitamin C] 500 mg PO BID 11/11/16 Calcium Carbonate [Oyster Shell Calcium] 500 mg PO DAILY 11/11/16 Multivit with Iron-Minerals [Compete] 1 tab PO DAILY 11/11/16 Sennosides [Senna] 2 tab PO HS 11/11/16 Warfarin Sodium [Coumadin] 2 mg PO DAILY 11/11/16 Cholecalciferol (Vitamin D3) [Vitamin D3 -] 1,000 units PO DAILY 12/21/16 Magnesium Hydrox 2400MG/30Ml [Milk of Magnesia -] 30 ml PO DAILY PRN 12/21/16 Melatonin 1 mg PO HS 12/21/16 Tramadol HCl [Ultram -] 50 mg PO BID 12/21/16 Family Disease History - Family Disease History Other Family History: no cancer Review of Systems Unable to obtain ROS, reason: [place] Physical Examination Vital Signs: Vital Signs Temperature 97.8 F 12/22/16 06:00 Pulse Rate 79 12/22/16 06:00 Respiratory Rate 20 12/22/16 06:00 Blood Pressure 119/72 12/22/16 06:00 O2 Sat by Pulse Oximetry (%) 99 12/21/16 22:00 Constitutional: Yes: No Distress, Calm Eyes: Yes: Conjunctiva Clear Neck: Yes: Supple Cardiovascular: Yes: Regular Rate and Rhythm Respiratory: Yes: CTA Bilaterally Gastrointestinal: Yes: Normal Bowel Sounds, Soft Edema: No Edema: LLE: Trace Neurological: Yes: Alert Labs: CBC, BMP 12/22/16 06:35 Imaging - Results Cat Scan: Report Reviewed Problem List - Problems (1) Fecal impaction of colon Code(s): K56.41 - FECAL IMPACTION (2) GI bleed Code(s): K92.2 - GASTROINTESTINAL HEMORRHAGE, UNSPECIFIED (3) Hydronephrosis, left Code(s): N13.30 - UNSPECIFIED HYDRONEPHROSIS (4) Incisional hernia of anterior abdominal wall without obstruction or gangrene Code(s): K43.2 - INCISIONAL HERNIA WITHOUT OBSTRUCTION OR GANGRENE (5) Dementia Code(s): F03.90 - UNSPECIFIED DEMENTIA WITHOUT BEHAVIORAL DISTURBANCE Assessment/Plan clinically stable halfway records reviewed. continue present care monitor cbc hold coumadin for now oob - chair physical therapy pt is dnr will follow discussed with nursing staff.
[2016-12-22] MEDS: DOCUSATE SODIUM 100 MG CAPSULE (FP) PO SCH (09:46)
[2016-12-22] MEDS: traZODone HCL 50 MG TABLET (FP) PO SCH ×2 (09:46→21:05)
[2016-12-22] MEDS: CHOLECALCIFEROL (VITAMIN D3) 1,000 UNIT TABLET (FP) PO SCH (09:47)
--- NOTE | 2016-12-22 17:33 | EKG ---
Test Reason : Blood Pressure : / mmHG Vent. Rate : 085 BPM Atrial Rate : 085 BPM P-R Int : 140 ms QRS Dur : 080 ms QT Int : 384 ms P-R-T Axes : 068 -04 048 degrees QTc Int : 456 ms NORMAL SINUS RHYTHM WITH SINUS ARRHYTHMIA MINIMAL VOLTAGE CRITERIA FOR LVH, MAY BE NORMAL VARIANT POSSIBLE LATERAL INFARCT , AGE UNDETERMINED INFERIOR INFARCT , AGE UNDETERMINED ABNORMAL ECG WHEN COMPARED WITH ECG OF 11-NOV-2016 14:55, NO SIGNIFICANT CHANGE WAS FOUND Confirmed by ANTIONETTE JOHNSON MD ([id number]) on 12/22/2016 5:33:11 PM Referred By: Confirmed By:ANTIONETTE JOHNSON MD
[2016-12-22] MEDS: SENNOSIDES 8.6MG TABLET (FP) PO SCH (21:05)
[2016-12-22] MEDS: MELATONIN 1 MG TABLET PO SCH (21:06)
[2016-12-22] MEDS: DEXTROSE 5%-WATER - 1,000 ML IV SCH (21:06)
[2016-12-22] MEDS ORDERED: SODIUM CHLORIDE 1,000 ML IV SCH (22:15)
[2016-12-23] MEDS: POLYETHYLENE GLYCOL 3350 119 GM BTL PO SCH ×2 (05:41→13:16)
[2016-12-23 06:06] LABS: SERUM IRON 45 ug/dL (27-139); TOTAL IRON BINDING CAPACITY 204 ug/dL (250-450); UIBC 159 ug/dL (118-369)
[2016-12-23 08:34] LABS: BASOPHIL 0.3 % (0-2.0); EOSINOPHIL 3.3 % (0-4.5); MCH 27.8 pg (25.7-33.7); MCHC 32.4 g/dl (32.0-36.0); MEAN CELL VOLUME 85.7 fl (80-96); NEUTROPHILS 74.1 % (42.8-82.8); PLATELET COUNT 385 K/MM3 (134-434); RDW 14.9 % (11.6-15.6); WHITE BLOOD COUNT 9.3 K/mm3 (4.0-10.0)
[2016-12-23 08:40] LABS: INR 2.18 (0.82-1.09); PROTHROMBIN TIME (PATIENT) 24.6 SEC (9.98-11.88)
[2016-12-23 09:13] LABS: ALBUMIN 2.5 g/dl (3.4-5.0); ANION GAP 9 (8-16); CALCIUM 7.9 mg/dL (8.5-10.1); CO2 24 mmol/L (21-32); CREATININE 0.6 mg/dL (0.55-1.02); GLUCOSE,RANDOM 97 mg/dL (74-106); SGOT/AST 16 U/L (15-37); SGPT/ALT 20 U/L (12-78)
[2016-12-23 09:16] LABS: ALK PHOS 182 U/L (45-117); BILIRUBIN,TOTAL 0.8 mg/dL (0.2-1.0); TOT PROT 5.7 g/dl (6.4-8.2)
[2016-12-23] MEDS: traZODone HCL 50 MG TABLET (FP) PO SCH (09:54)
[2016-12-23] MEDS: DOCUSATE SODIUM 100 MG CAPSULE (FP) PO SCH (09:54)
[2016-12-23] MEDS: CHOLECALCIFEROL (VITAMIN D3) 1,000 UNIT TABLET (FP) PO SCH (09:55)
--- NOTE | 2016-12-23 11:52 | DS ---
Physical Examination Vital Signs: Vital Signs Temperature 98.0 F 12/23/16 06:50 Pulse Rate 76 12/23/16 06:50 Respiratory Rate 18 12/23/16 09:00 Blood Pressure 135/45 12/23/16 06:50 O2 Sat by Pulse Oximetry (%) 99 12/23/16 09:00 Constitutional: Yes: No Distress, Calm Cardiovascular: Yes: Regular Rate and Rhythm Respiratory: Yes: Diminished Gastrointestinal: Yes: Normal Bowel Sounds, Soft Edema: Yes Labs: CBC, BMP 12/23/16 07:00 12/23/16 07:00 Discharge Summary Reason For Visit: GASTROINTESTINAL HEMORRAGE Current Active Problems Closed fracture of hip with nonunion (Acute) Dementia (Acute) External hemorrhoid, bleeding (Acute) Fecal impaction of colon (Acute) GI bleed (Acute) Hydronephrosis, left (Acute) Incisional hernia of anterior abdominal wall without obstruction or gangrene ( Acute) Rectal bleed (Acute) Hospital Course: Admitted for rectal bleeding Found to have fecal impaction Seen by GI CT abd- showed fecal impaction and compression of left ureter due to impacted stool leading to a distended sigmoid colon compressing in left ureter and causing hydronephrosis CBD dilation seen on CT -- likely due to passage of stone-- LFT not elevated , s /p cholecystectomy GI -= DR Lopez had evaluated pt-- son does not want her to undergo colonoscopy Pt was disimpacted yesterday and has good BM HCT - stable, no drop noted no GI bleeding pt may resume Coumadin with close watch over INR and CBC stable for dc to NH will need to check sono kidneys - for resolution of left hydronephrosis in a few days Condition: Improved - Instructions Referrals: Edenilson Walters [Primary Care Provider] - [facility] - Home Medications Comprehensive Discharge Medication List: Ambulatory Orders Docusate Sodium 200 mg PO HS 07/05/16 Trazodone HCl 25 mg PO BID 07/05/16 Ascorbic Acid [Vitamin C] 500 mg PO BID 11/11/16 Calcium Carbonate [Oyster Shell Calcium] 500 mg PO DAILY 11/11/16 Multivit with Iron-Minerals [Compete] 1 tab PO DAILY 11/11/16 Sennosides [Senna] 2 tab PO HS 11/11/16 Warfarin Sodium [Coumadin] 2 mg PO DAILY 11/11/16 Cholecalciferol (Vitamin D3) [Vitamin D3 -] 1,000 units PO DAILY 12/21/16 Magnesium Hydrox 2400MG/30Ml [Milk of Magnesia -] 30 ml PO DAILY PRN 12/21/16 Polyethylene Glycol 3350 [Miralax 119 gm Btl -] 17 gm PO TID PRN #1 bottle 12/23
[2016-12-23 15:04] VITALS: BP 130/78; PULSE 82; TEMP 98.2
== END 2016-12-23 15:08 | DRG 389 ==
LOC: JER 09:25 → JERBED 14:41 → J8W 16:49
PROVIDERS: ADMIT Internal Medicine; ATTEND Internal Medicine
DX: K56.41 Fecal impaction (principal); F31.89 Other bipolar disorder; N13.39 Other hydronephrosis; M80.8 Other osteoporosis with current pathological fracture; S72.009 Fracture of unspecified part of neck of unspecified femur; I11.0 Hypertensive heart disease with heart failure; F03.90 Unspecified dementia, unspecified severity, without behavioral disturbance, psychotic disturbance, mood disturbance, and anxiety; K21.9 Gastro-esophageal reflux disease without esophagitis; K64.4 Residual hemorrhoidal skin tags; K82.8 Other specified diseases of gallbladder; K43.2 Incisional hernia without obstruction or gangrene; Z79.01 Long term (current) use of anticoagulants; Z86.718 Personal history of other venous thrombosis and embolism; Z87.891 Personal history of nicotine dependence; Z66 Do not resuscitate; Z96.653 Presence of artificial knee joint, bilateral; Z90.710 Acquired absence of both cervix and uterus
CPT/HCPCS: 36415; 74177-TC; 80053; 82272; 82550; 82728; 82977; 83540; 83550; 83605; 84484; 85025; 85610; 85730; 86850; 86870; 86900; 86901; 86902; 93005; 93010; 97161-GP; 99285-25

== ENCOUNTER 2017-01-26 22:22 | Inpatient (IN) | payer OTHER, BC ==
[2017-01-27 00:41] LABS: BASO % 0.4 % (0-2.0); EOS % 1.5 % (0-4.5); MCH 27.6 pg (25.7-33.7); MCHC 31.9 g/dl (32.0-36.0); MEAN CELL VOLUME 86.6 fl (80-96); NEUT % 80.1 % (42.8-82.8); PLATELET COUNT 460 K/MM3 (134-434); RDW 15.8 % (11.6-15.6)
--- NOTE | 2017-01-27 00:58 | PDOC ---
History of Present Illness <Shelby Johnson - Last Filed: 01/27/17 00:58> - General History Source: Patient Exam Limitations: No Limitations - History of Present Illness Initial Comments: 01/27/17 01:03 86 F with h/o CHF, dementia, and DVT on coumadin, presenting to ER with rectal bleeding. Pt was sent from [facility] with vaginal bleeding. Patient is alert with son at bedside. He reports noted vaginal bleeding by the NH. Son reports hx of clot present in the left foot. Patient herself is unable to contribute any history due to severe dementia. <Lisbeth Banegas - Last Filed: 01/27/17 01:04> - General Chief Complaint: Vaginal Bleeding Stated Complaint: VAGINAL BLEEDING Time Seen by Provider: 01/26/17 22:29 Past History - Past Medical History Cardiac Disorders: Yes (was on Lasix) COPD: No Dementia: Yes HTN: Yes - Surgical History Abdominal Surgery: No Appendectomy: No Cardiac Surgery: No Cholecystectomy: No Gastric Stapling: No GI Surgery: No Lung Surgery: No Neurologic Surgery: No Orthopedic Surgery: Yes - Immunization History Td Vaccination: No TDAP Vaccination: No Immunization Up to Date: Yes - Suicide/Smoking/Psychosocial Hx Smoking Status: No Smoking History: Unknown if ever smoked Years of Tobacco Use: 0 Have you smoked in the past 12 months: No Number of Cigarettes Smoked Daily: 0 If you are a former smoker, when did you quit?: quit age 62 Cigars Per Day: 0 Information on smoking cessation initiated: No Hx Alcohol Use: No Drug/Substance Use Hx: No Hx Substance Use Treatment: No <Shelby Johnson - Last Filed: 01/27/17 00:58> <Lisbeth Banegas - Last Filed: 01/27/17 01:04> - Past Medical History Allergies/Adverse Reactions: Allergies Allergy/AdvReac Type Severity Reaction Status Date / Time No Known Allergies Allergy Unverified 01/26/17 22:33 Home Medications: Ambulatory Orders Docusate Sodium 200 mg PO HS 07/05/16 Trazodone HCl 25 mg PO BID 07/05/16 Ascorbic Acid [Vitamin C] 500 mg PO BID 11/11/16 Calcium Carbonate [Oyster Shell Calcium] 500 mg PO DAILY 11/11/16 Multivit with Iron-Minerals [Compete] 1 tab PO DAILY 11/11/16 Sennosides [Senna] 2 tab PO HS 11/11/16 Warfarin Sodium [Coumadin] 2 mg PO DAILY 11/11/16 Cholecalciferol (Vitamin D3) [Vitamin D3 -] 1,000 units PO DAILY 12/21/16 Magnesium Hydrox 2400MG/30Ml [Milk of Magnesia -] 30 ml PO DAILY PRN 12/21/16 Polyethylene Glycol 3350 [Miralax 119 gm Btl -] 17 gm PO TID PRN #1 bottle 12/23 Review of Systems - Review of Systems Able to Perform ROS?: No Comments:: 01/27/17 01:03 Unable to obtain due to patient's mental status. <Lisbeth Banegas - Last Filed: 01/27/17 01:04> *Physical Exam - Vital Signs Last Vital Signs Temp Pulse Resp BP Pulse Ox 97.6 F 87 20 106/76 96 01/26/17 22:33 01/26/17 22:33 01/26/17 22:33 01/26/17 22:33 01/26/17 22:33 <Shelby Johnson - Last Filed: 01/27/17 00:58> - Vital Signs Last Vital Signs Temp Pulse Resp BP Pulse Ox 97.6 F 87 20 106/76 96 01/26/17 22:33 01/26/17 22:33 01/26/17 22:33 01/26/17 22:33 01/26/17 22:33 - Physical Exam Comments: 01/27/17 01:04 GENERAL: Awake and alert, verbalizes but not conversant makes sounds. Wheelchair bound. Well nourished.. No acute distress. HEENT: Normocephalic, atraumatic. PERRLA, EOMI. No conjunctival pallor. Sclera are non- icteric. Moist mucous membranes. Oropharynx is clear. NECK: Supple. Full ROM. No JVD. Carotid pulses 2+ and symmetric, without bruits. No thyromegaly. No lymphadenopathy. CARDIOVASCULAR: Regular rate and rhythm. No murmurs, rubs, or gallops. Distal pulses are 2+ and symmetric. PULMONARY: No evidence of respiratory distress. Lungs clear to auscultation bilaterally. No wheezing, rales or rhonchi. ABDOMINAL: Protuberant belly. Both bladder and bowel incontinent. Soft. Non-tender. Non- distended. No rebound or guarding. No organomegaly. Normoactive bowel sounds. MUSCULOSKELETAL +Left swollen foot with known clot, warm and has DP, PT pulses, no cellulitis in the foot. Normal range of motion at all joints. No bony deformities or tenderness. No CVA tenderness. EXTREMITIES: No cyanosis. No clubbing. No edema. No calf tenderness. SKIN: Warm and dry. Normal capillary refill. No rashes. No jaundice. NEUROLOGICAL: Alert, awake. PSYCHIATRIC: Cooperative. Good eye contact. Appropriate mood and affect. RECTAL EXAM: +brown stool. No melena or blood. PELVIC EXAM: +hard mass present in the vaginal vault, difficult to pass the speculum, no dry blood or active bleeding seen on exam. <Lisbeth Banegas - Last Filed: 01/27/17 01:04> ED Treatment Course - LABORATORY CBC & Chemistry Diagram: 01/27/17 00:23 - ADDITIONAL ORDERS Additional order review: 01/27/17 00:23 RBC 4.85 MCV 86.6 MCHC 31.9 L RDW 15.8 H MPV 8.0 Neutrophils % 80.1 Lymphocytes % 11.7 D Monocytes % 6.3 Eosinophils % 1.5 Basophils % 0.4 - RADIOLOGY Radiology Studies Ordered: Category Date Time Status PELVIS(OTHER) US [US] Stat Ultrasound 01/27/17 00:48 Ordered <Shelby Johnson - Last Filed: 01/27/17 00:58> - LABORATORY CBC & Chemistry Diagram: 01/27/17 00:23 - ADDITIONAL ORDERS Additional order review: 01/27/17 00:23 RBC 4.85 MCV 86.6 MCHC 31.9 L RDW 15.8 H MPV 8.0 Neutrophils % 80.1 Lymphocytes % 11.7 D Monocytes % 6.3 Eosinophils % 1.5 Basophils % 0.4 <Lisbeth Banegas - Last Filed: 01/27/17 01:04> *DC/Admit/Observation/Transfer - Attestations Scribe Attestion: 01/27/17 01:04 Documentation prepared by KRISTIN England, acting as medical office administrator for Sehlby Johnson MD/. <Koziy,Lisbeth - Last Filed: 01/27/17 01:04>
[2017-01-27] MEDS ORDERED: LORazepam 2 MG/ML SDV VIAL ONE (01:12)
[2017-01-27 02:10] LABS: INR 3.03 (0.82-1.09); PROTHROMBIN TIME (PATIENT) 34.2 SEC (9.98-11.88)
[2017-01-27 02:20] LABS: ALBUMIN 3.2 g/dl (3.4-5.0); ANION GAP 13 (8-16); BILIRUBIN,TOTAL 0.4 mg/dL (0.2-1.0); CALCIUM 9.7 mg/dL (8.5-10.1); CO2 25 mmol/L (21-32); CREATININE 0.8 mg/dL (0.55-1.02); GLUCOSE,RANDOM 115 mg/dL (74-106); SGPT/ALT 23 U/L (12-78)
[2017-01-27 02:21] LABS: ALK PHOS 191 U/L (45-117)
[2017-01-27 02:51] LABS: SGOT/AST 24 U/L (15-37)
[2017-01-27 02:57] LABS: URINE APPEARANCE CLOUDY; URINE BILIRUBIN NEGATIVE (NEGATIVE); URINE BLOOD NEGATIVE (NEGATIVE); URINE GLUCOSE (UA) NEGATIVE (NEGATIVE); URINE KETONE NEGATIVE (NEGATIVE); URINE LEUK ESTERASE TRACE (NEGATIVE); URINE NITRITE NEGATIVE (NEGATIVE); URINE UROBILINOGEN NEGATIVE mg/dL (0.2-1.0)
[2017-01-27 03:00] LABS: URINE PROTEIN 2+ (NEGATIVE)
[2017-01-27 03:01] LABS: URINE COLOR BROWN
[2017-01-27 03:03] LABS: URINE BACTERIA MODERATE /hpf (NONE SEEN); URINE RBC 2 /hpf (0-3); URINE WBC 129 /hpf (3-5)
[2017-01-27] MEDS ORDERED: CEFTRIAXONE 1 GM in DEXTROSE 5%-WATER - 50 ML IVPB ONE (03:14)
--- NOTE | 2017-01-27 03:18 | PDOC ---
*Physical Exam - Vital Signs Last Vital Signs Temp Pulse Resp BP Pulse Ox 97.6 F 87 20 106/76 96 01/26/17 22:33 01/26/17 22:33 01/26/17 22:33 01/26/17 22:33 01/26/17 22:33 ED Treatment Course - LABORATORY CBC & Chemistry Diagram: 01/27/17 00:23 01/27/17 01:45 - ADDITIONAL ORDERS Additional order review: Laboratory Results 01/27/17 01/27/17 01/27/17 02:45 01:45 01:45 PT with INR 34.20 H INR 3.03 H D Sodium 144 Potassium 4.7 D Chloride 106 Carbon Dioxide 25 Anion Gap 13 BUN 32 H D Creatinine 0.8 D Creat Clearance w eGFR > 60 Random Glucose 115 H Calcium 9.7 D Total Bilirubin 0.4 D AST 24 D ALT 23 Alkaline Phosphatase 191 H Total Protein 7.0 D Albumin 3.2 L D Urine Color Brown Urine Appearance Cloudy Urine pH 8.0 D Ur Specific [place] 1.014 Urine Protein 2+ H Urine Glucose (UA) Negative Urine Ketones Negative Urine Blood Negative Urine Nitrite Negative Urine Bilirubin Negative Urine Urobilinogen Negative Urine WBC (Auto) 129 Urine RBC (Auto) 2 Ur Epithelial Cells Rare Urine Bacteria Moderate 01/27/17 00:23 RBC 4.85 MCV 86.6 MCHC 31.9 L RDW 15.8 H MPV 8.0 Neutrophils % 80.1 Lymphocytes % 11.7 D Monocytes % 6.3 Eosinophils % 1.5 Basophils % 0.4 - Medications Given in the ED: ED Medications Discontinued Medications Generic Name Dose Route Start Last Admin Trade Name Freq PRN Reason Stop Dose Admin Lorazepam 0.5 mg 01/27/17 00:55 01/27/17 01:09 Ativan Injection - IVPUSH 01/27/17 00:56 0.5 mg ONCE STA Administration Medical Decision Making - Medical Decision Making 01/27/17 03:[address] Johnson no blood in vaginal vault, no blood on rectal exam. Hemodynamically stable. No drop in H&H. Elevated white blood cell count. Patient agitated in the emergency department received 1 mg of Ativan. Urinalysis pending Reevaluation: 3:15 AM patient sleeping comfortably UA grossly positive given agitation elevated white blood cell count we'll observe for IV antibiotics and reassess in morning. *DC/Admit/Observation/Transfer Diagnosis at time of Disposition: UTI (urinary tract infection) Qualifiers: Urinary tract infection type: site unspecified Hematuria presence: with hematuria Qualified Code(s): N39.0 - Urinary tract infection, site not specified ; R31.9 - Hematuria, unspecified; R31.9 - Hematuria, unspecified - Discharge Dispostion Admit: Yes - Referrals - Patient Instructions - Post Discharge Activity
[2017-01-27] MEDS ORDERED: CEFTRIAXONE 1 GM/50 ML BAG ONE (03:31)
[2017-01-27] MEDS ORDERED: SODIUM CHLORIDE 0.9% 1000 ML INFUS.BAG IV ONE (03:45)
[2017-01-27] MEDS ORDERED: MAGNESIUM HYDROX 2400MG/30ML ORAL SUSPENSION 30 ML CUP PO PRN (05:03)
--- NOTE | 2017-01-27 05:29 | HP ---
CHIEF COMPLAINT: blood in diaper PCP: Katy RAUSCH HISTORY OF PRESENT ILLNESS: This is an 86 year old female with a past medical history of blood in diaper, treated here 12/21-12/23 for same, no active GI bleed noted at time, + fecal impaction. She now presents again with blood in diaper, "vaginal bleeding" as per correction. Pt has dementia and is unable to cooperate with ROS. Information obtained from ED and [place] charts. ER course was notable for: (1) WBC 14.0 (2) u/a c/w UTI (3) mass noted in vagina by ED MD Recent Travel: none PAST MEDICAL HISTORY: CHF HTN DVT on coumadin HTN constipation GERD bipolar depression PAST SURGICAL HISTORY: B/L TKR L hip fx, s/p gamma nail with nonunion, now nonambulatory cholecystectomy hysterectomy Social History: Smoking: unk Alcohol: unk Drugs: unk Family History: unable to obtain Allergies No Known Allergies Allergy (Unverified 01/26/17 22:33) HOME MEDICATIONS: 3 Medication Instructions Recorded Docusate Sodium 200 mg PO HS 07/05/16 Trazodone HCl 25 mg PO BID 07/05/16 Ascorbic Acid [Vitamin C] 500 mg PO BID 11/11/16 Calcium Carbonate [Oyster Shell 500 mg PO DAILY 11/11/16 Calcium] Multivit with Iron-Minerals 1 tab PO DAILY 11/11/16 [Compete] Sennosides [Senna] 2 tab PO HS 11/11/16 Warfarin Sodium [Coumadin] 2 mg PO DAILY 11/11/16 Cholecalciferol (Vitamin D3) 1,000 units PO DAILY 12/21/16 [Vitamin D3 -] Magnesium Hydrox 2400MG/30Ml [Milk 30 ml PO DAILY PRN 12/21/16 of Magnesia -] Polyethylene Glycol 3350 [Miralax 17 gm PO TID PRN #1 bottle 12/23/16 119 gm Btl -] REVIEW OF SYSTEMS CONSTITUTIONAL: Absent: fever, chills, diaphoresis, generalized weakness, malaise, loss of appetite, weight change HEENT: Absent: rhinorrhea, nasal congestion, throat pain, throat swelling, difficulty swallowing, mouth swelling, ear pain, eye pain, visual changes CARDIOVASCULAR: Absent: chest pain, syncope, palpitations, irregular heart rate, lightheadedness , peripheral edema RESPIRATORY: Absent: cough, shortness of breath, dyspnea with exertion, orthopnea, wheezing, stridor, hemoptysis GASTROINTESTINAL: Absent: abdominal pain, abdominal distension, nausea, vomiting, diarrhea, constipation, melena, hematochezia GENITOURINARY: Present: ? vaginal bleeding Absent: dysuria, frequency, urgency, hesitancy, hematuria, flank pain, genital pain MUSCULOSKELETAL: Absent: myalgia, arthralgia, joint swelling, back pain, neck pain SKIN: Absent: rash, itching, pallor HEMATOLOGIC/IMMUNOLOGIC: Absent: easy bleeding, easy bruising, lymphadenopathy, frequent infections ENDOCRINE: Absent: unexplained weight gain, unexplained weight loss, heat intolerance, cold intolerance NEUROLOGIC: Absent: headache, focal weakness or paresthesias, dizziness, unsteady gait, seizure, mental status changes, bladder or bowel incontinence PSYCHIATRIC: Absent: anxiety, depression, suicidal or homicidal ideation, hallucinations. PHYSICAL EXAMINATION Vital Signs - 24 hr 3 01/26/17 22:33 Temperature 97.6 F Pulse Rate 87 Respiratory 20 Rate Blood Pressure 106/76 O2 Sat by Pulse 96 Oximetry (%) GENERAL: Awake, alert, and fully oriented, in no acute distress. HEAD: Normal with no signs of trauma. EYES: Pupils equal, round and reactive to light, extraocular movements intact, sclera anicteric, conjunctiva clear. No lid lag. EARS, NOSE, THROAT: Ears normal, nares patent, oropharynx clear without exudates. Moist mucous membranes. NECK: Normal range of motion, supple without lymphadenopathy, JVD, or masses. LUNGS: Breath sounds equal, clear to auscultation bilaterally. No wheezes, and no crackles. No accessory muscle use. HEART: Regular rate and rhythm, normal S1 and S2 without murmur, rub or gallop. ABDOMEN: Soft, tender to palpation, + distended, normoactive bowel sounds, no guarding, no rebound, no masses. No hepatomegaly or splenomegaly. rectal exam with soft brown stool : martinez in place, cloudy yellowish urine, vaginal exam noted with hard mass in vault, + bleeding noted after palpation of same. MUSCULOSKELETAL: Normal range of motion at all joints. No bony deformities or tenderness. No CVA tenderness. UPPER EXTREMITIES: 2+ pulses, warm, well-perfused. No cyanosis. No clubbing. No peripheral edema. LOWER EXTREMITIES: 2+ pulses, warm, well-perfused. No calf tenderness. No peripheral edema right, 2+ edema left lower leg, no erythema NEUROLOGICAL: Cranial nerves II-XII intact. Normal speech. Normal gait. PSYCHIATRIC: Cooperative. Good eye contact. Appropriate mood and affect. SKIN: Warm, dry, normal turgor, no rashes or lesions noted, normal capillary refill. Laboratory Results - last 24 hr 3 01/27/17 01/27/17 01/27/17 00:23 01:45 01:45 WBC 14.0 H D RBC 4.85 Hgb 13.4 D Hct 42.0 D MCV 86.6 MCH 27.6 MCHC 31.9 L RDW 15.8 H Plt Count 460 H MPV 8.0 Neutrophils % 80.1 Lymphocytes % 11.7 D Monocytes % 6.3 Eosinophils % 1.5 Basophils % 0.4 PT with INR 34.20 H INR 3.03 H D Sodium 144 Potassium 4.7 D Chloride 106 Carbon Dioxide 25 Anion Gap 13 BUN 32 H D Creatinine 0.8 D Creat Clearance w eGFR > 60 Random Glucose 115 H Calcium 9.7 D Total Bilirubin 0.4 D AST 24 D ALT 23 Alkaline Phosphatase 191 H Total Protein 7.0 D Albumin 3.2 L D Urine Color Urine Appearance Urine pH Ur Specific [place] Urine Protein Urine Glucose (UA) Urine Ketones Urine Blood Urine Nitrite Urine Bilirubin Urine Urobilinogen Urine WBC (Auto) Urine RBC (Auto) Ur Epithelial Cells Urine Bacteria 3 Urine Color Brown 01/27/17 02:45 Urine Appearance Cloudy 01/27/17 02:45 Urine pH 8.0 (5.0-8.0) D 01/27/17 02:45 Ur Specific [place] 1.014 (1.001-1.035) 01/27/17 02:45 Urine Protein 2+ (NEGATIVE) H 01/27/17 02:45 Urine Glucose (UA) Negative (NEGATIVE) 01/27/17 02:45 Urine Ketones Negative (NEGATIVE) 01/27/17 02:45 Urine Blood Negative (NEGATIVE) 01/27/17 02:45 Urine Nitrite Negative (NEGATIVE) 01/27/17 02:45 Urine Bilirubin Negative (NEGATIVE) 01/27/17 02:45 Ur Epithelial Cells Rare /HPF (FEW) 01/27/17 02:45 Urine Bacteria Moderate /hpf (NONE SEEN) 01/27/17 02:45 ASSESSMENT/PLAN: 86yF with PMH CHF, HTN, dementia, DVT on coumadin, constipation, GERD, bipolar depression presented to ED with blood in diaper. Vaginal bleeding with palpable firm mass - pelvic sono without significant findings - ? may need TV sono - Will need CAMPGROUND ATTENDANT consult, will defer to PCP whom they prefer to consult - hold coumadin for now - CBC in am UTI - cont ceftriaxone, follow cultures - will give NS @ 75cc/hr x 1 liter given elevated BUN constipation - will obtain abd xray to r/o higher impaction - cont miralax BID, senna and colace HTN/CHF - on no meds in NH, BP stable, no s/s fluid overload, cont to monitor depression - cont trazodone DVT PPX - on coumadin for DVT, being held due to bleeding FEN - NS @ 75cc/hr - BMP in am - regular diet as tolerated Dispo: pt admitted for further observation. Visit type - Emergency Visit Emergency Visit: Yes ED Registration Date: 01/26/17 Care time: The patient presented to the Emergency Department on the above date and was hospitalized for further evaluation of their emergent condition. - New Patient This patient is new to me today: Yes Date on this admission: 01/27/17 - Critical Care Critical Care patient: No
[2017-01-27] MEDS ORDERED: SODIUM CHLORIDE 1,000 ML IV SCH (05:30)
[2017-01-27 06:00] VITALS: BMI 29.0
[2017-01-27 08:23] LABS: BASO % 0.8 % (0-2.0); EOS % 1.3 % (0-4.5); MCH 27.3 pg (25.7-33.7); MCHC 31.5 g/dl (32.0-36.0); MEAN CELL VOLUME 86.4 fl (80-96); MEAN PLT VOLUME 7.9 fl (7.5-11.1); PLATELET COUNT 384 K/MM3 (134-434); RDW 15.8 % (11.6-15.6); WHITE BLOOD COUNT 11.9 K/mm3 (4.0-10.0)
[2017-01-27 08:49] LABS: ANION GAP 7 (8-16); CO2 26 mmol/L (21-32); CREATININE 0.7 mg/dL (0.55-1.02); GLUCOSE,RANDOM 92 mg/dL (74-106); PHOSPHOROUS 3.9 mg/dL (2.5-4.9)
[2017-01-27 08:56] LABS: CALCIUM 8.4 mg/dL (8.5-10.1); MAGNESIUM 2.2 mg/dL (1.8-2.4)
[2017-01-27 09:17] LABS: URINE LEUK ESTERASE 3+ (NEGATIVE)
[2017-01-27] MEDS: traZODone HCL 50 MG TABLET (FP) PO SCH ×2 (10:32→22:16)
[2017-01-27] MEDS: MULTIVITAMINS THER W-MINERALS COMBO TABLET (FP) PO SCH (10:32)
[2017-01-27] MEDS: CALCIUM (OYSTER SHELL) 500 MG TABLET (FP) PO SCH (10:32)
[2017-01-27] MEDS: POLYETHYLENE GLYCOL 3350 119 GM BTL PO SCH (10:32)
[2017-01-27] MEDS: CHOLECALCIFEROL (VITAMIN D3) 1,000 UNIT TABLET (FP) PO SCH (10:32)
[2017-01-27] MEDS: ASCORBIC ACID 500 MG TABLET (FP) PO SCH ×2 (10:32→22:17)
[2017-01-27] MEDS: SENNOSIDES 8.6MG TABLET (FP) PO SCH (22:16)
[2017-01-27] MEDS: DOCUSATE SODIUM 100 MG CAPSULE (FP) PO SCH (22:16)
[2017-01-27] MEDS: CEFTRIAXONE 1 G/50 ML PREMIX 50 ML IVPB SCH (22:16)
[2017-01-27] MEDS: SODIUM CHLORIDE 1,000 ML IV SCH (23:31)
[2017-01-28 07:55] LABS: BASO % 0.5 % (0-2.0); EOS % 2.1 % (0-4.5); MCH 27.3 pg (25.7-33.7); MCHC 31.3 g/dl (32.0-36.0); MEAN CELL VOLUME 87.1 fl (80-96); MEAN PLT VOLUME 8.2 fl (7.5-11.1); PLATELET COUNT 389 K/MM3 (134-434); WHITE BLOOD COUNT 9.1 K/mm3 (4.0-10.0)
[2017-01-28 08:09] LABS: INR 2.45 (0.82-1.09); PROTHROMBIN TIME (PATIENT) 27.7 SEC (9.98-11.88)
[2017-01-28 08:25] LABS: ALBUMIN 2.7 g/dl (3.4-5.0); ALK PHOS 169 U/L (45-117); ANION GAP 11 (8-16); BILIRUBIN,TOTAL 0.6 mg/dL (0.2-1.0); CALCIUM 8.2 mg/dL (8.5-10.1); CO2 23 mmol/L (21-32); CREATININE 0.7 mg/dL (0.55-1.02); GLUCOSE,RANDOM 72 mg/dL (74-106); SGOT/AST 20 U/L (15-37); SGPT/ALT 19 U/L (12-78); TOT PROT 6.2 g/dl (6.4-8.2)
--- NOTE | 2017-01-28 09:06 | PN ---
Progress Note (short form) - Note Progress Note: patient seen and examined. Chart reviewed Comfortable Woo removed yesterday--- passing urine Having bowel movement RN reports--- again noticed blood in vagina. Coumadin on hold Vital Signs Temp 98.4 F 01/28/17 06:00 Pulse 89 01/28/17 06:00 Resp 20 01/28/17 06:00 BP 150/71 01/28/17 06:00 Pulse Ox 97 01/28/17 02:00 Intake & Output 01/27/17 01/27/17 01/28/17 11:59 23:59 11:59 Intake Total 950 825 Output Total 800 Balance -800 950 825 Weight 169 lb Intake: IV 950 825 Normal Saline - 1,000 ml 950 @ 75 mls/hr IV [facility] Rx#:[id number] Normal Saline - 1,000 ml 825 @ 75 mls/hr IV [facility] Rx#:[id number] Output: Urine 800 Woo 800 Other: Voiding Method Indwelling Catheter Incontinent Incontinent Bowel Movement Yes # Bowel Movements 1 Height 5 ft 4 in Body Mass Index (BMI) 29.0 Active Medications Ascorbic Acid (Vitamin C -) 500 mg PO BID [facility] Last Admin: 01/27/17 22:17 Dose: 500 mg Calcium Carbonate (Os-Vick 500mg -) 500 mg PO DAILY [facility] Last Admin: 01/27/17 10:32 Dose: 500 mg Cholecalciferol (Vitamin D3 -) 1,000 unit PO DAILY [facility] Last Admin: 01/27/17 10:32 Dose: 1,000 unit Docusate Sodium (Colace -) 200 mg PO HS [facility] Last Admin: 01/27/17 22:16 Dose: 200 mg CEFTRIAXONE 1 G/50 ML PREMIX (Ceftriaxone 1 Gm-D5w Bag) 50 mls @ 100 mls/hr IVPB HS [facility] Last Admin: 01/27/17 22:16 Dose: 100 mls/hr Sodium Chloride (Normal Saline -) 1,000 mls @ 75 mls/hr IV [facility] Stop: 01/29/17 23:14 Last Admin: 01/27/17 23:31 Dose: 75 mls/hr Magnesium Hydroxide (Milk Of Magnesia -) 30 ml PO DAILY PRN PRN Reason: CONSTIPATION Multivitamins/Minerals (Theragran-M) 1 each PO DAILY [facility] Last Admin: 01/27/17 10:32 Dose: 1 each Polyethylene Glycol (Miralax (For Daily Use) -) 17 gm PO DAILY [facility] Last Admin: 01/27/17 10:32 Dose: 17 gm Senna (Senna -) 2 tab PO HS [facility] Last Admin: 01/27/17 22:16 Dose: 2 tab Trazodone HCl (Desyrel -) 25 mg PO BID [facility] Last Admin: 01/27/17 22:16 Dose: 25 mg Warfarin Sodium (Coumadin -) 2 mg PO DAILY@1800 [facility] CBC, BMP 01/28/17 06:00 01/28/17 06:00 INR, PTT INR 2.45 (0.82-1.09) H 01/28/17 06:00 physical exam Awake/Comfortable Neck-supple Lungs-clear CVS--S1 and S2 regular Abdomen--- soft--- and slightly distended. Extremities--- no edema Neuro--awake ASSESSMENT/PLAN: 86yF with PMH CHF, HTN, dementia, DVT on coumadin, constipation, GERD, bipolar depression presented to ED with blood in diaper. Vaginal bleeding with palpable firm mass - pelvic sono without significant findings - ? may need TV sono - Gynecology consult pending - hold coumadin for now - UTI - cont ceftriaxone, follow cultures - constipation - follow-up F UA--- ordered - cont miralax BID, senna and colace HTN/CHF - stable depression - cont trazodone DVT PPX - on coumadin for DVT, being held due to bleeding continue present care We will follow Discussed with nursing staff also. Problem List - Problems (1) Vaginal bleeding Code(s): N93.9 - ABNORMAL UTERINE AND VAGINAL BLEEDING, UNSPECIFIED (2) Dementia Code(s): F03.90 - UNSPECIFIED DEMENTIA WITHOUT BEHAVIORAL DISTURBANCE (3) Dvt femoral (deep venous thrombosis) Code(s): I82.419 - ACUTE EMBOLISM AND THROMBOSIS OF UNSPECIFIED FEMORAL VEIN (4) Fecal impaction of colon Code(s): K56.41 - FECAL IMPACTION
[2017-01-28] MEDS: CHOLECALCIFEROL (VITAMIN D3) 1,000 UNIT TABLET (FP) PO SCH (09:13)
[2017-01-28] MEDS: CALCIUM (OYSTER SHELL) 500 MG TABLET (FP) PO SCH (09:13)
[2017-01-28] MEDS: traZODone HCL 50 MG TABLET (FP) PO SCH ×2 (09:13→21:55)
[2017-01-28] MEDS: ASCORBIC ACID 500 MG TABLET (FP) PO SCH ×2 (09:13→21:54)
[2017-01-28] MEDS: MULTIVITAMINS THER W-MINERALS COMBO TABLET (FP) PO SCH (09:13)
[2017-01-28] MEDS: POLYETHYLENE GLYCOL 3350 119 GM BTL PO SCH (09:15)
--- NOTE | 2017-01-28 10:20 | CON.OBG ---
Consult Consult Specialty:: OB / GOLF PLAYER ASSISTANT Reason for Consultation:: Vaginal bleeding - History of Present Illness Chief Complaint: Vaginal bleeding History of Present Illness: 86 yo with dementia from detention, non communicating, admitted due to vaginal bleeding. Patient is incontinent and apparently blood was seen on the diaper. She had previous hip surgery; she's bedridden. A pelvic sonogram done during this current admission failed to show any gynecologic pathology. There was debris noted in the bladder. 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 Cardio/Vascular: Yes: Deep Vein Thrombosis (but not confirmed by 10/10/16 duplex doppler, has chronic LLE edema), HTN Gastrointestinal: Yes: Constipation, GERD ...: No Heme/Onc: No: Anemia Psych: Yes: Bipolar, Depression - Past Surgical History Past Surgical History: Yes: Cholecystectomy, Hysterectomy, Joint Replacement ( bilateral knee replacments) - Alcohol/Substance Use Hx Alcohol Use: No - Smoking History Smoking history: Unknown if ever smoked Have you smoked in the past 12 months: No Aproximately how many cigarettes per day: 0 If you are a former smoker, when did you quit?: quit age 62 - Social History Usual Living Arrangement: Longterm ADL: Support Services 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 Travel: No Home Medications - Allergies Allergies/Adverse Reactions: Allergies Allergy/AdvReac Type Severity Reaction Status Date / Time No Known Allergies Allergy Unverified 01/26/17 22:33 - Home Medications Home Medications: Ambulatory Orders Docusate Sodium 200 mg PO HS 07/05/16 Trazodone HCl 25 mg PO BID 07/05/16 Ascorbic Acid [Vitamin C] 500 mg PO BID 11/11/16 Calcium Carbonate [Oyster Shell Calcium] 500 mg PO DAILY 11/11/16 Multivit with Iron,Minerals [Compete] 1 tab PO DAILY 11/11/16 Sennosides [Senna] 2 tab PO HS 11/11/16 Warfarin Sodium [Coumadin] 2 mg PO DAILY 11/11/16 Cholecalciferol (Vitamin D3) [Vitamin D3 -] 1,000 units PO DAILY 12/21/16 Magnesium Hydrox 2400MG/30Ml [Milk of Magnesia -] 30 ml PO DAILY PRN 12/21/16 Polyethylene Glycol 3350 [Miralax 119 gm Btl -] 17 gm PO TID PRN #1 bottle 11/14 /17 Family Disease History - Family Disease History Family History: Unremarkable Physical Exam-GOLF PLAYER ASSISTANT Vital Signs: Vital Signs Temperature 98.4 F 01/28/17 06:00 Pulse Rate 89 01/28/17 06:00 Respiratory Rate 20 01/28/17 06:00 Blood Pressure 150/71 01/28/17 06:00 O2 Sat by Pulse Oximetry (%) 97 01/28/17 02:00 Constitutional: Yes: Mild Distress HENT: Yes: Atraumatic Neck: Yes: Trachea Midline Cardiovascular: No: Bradycardia, Tachycardia Respiratory: No: Diminished, Orthopnea, Poor Air Entry, Tachypnea Gastrointestinal: Yes: Hypoactive Bowel Sounds Pelvis: No: Mass, Tenderness External Genitalia: Yes: Other (Brow discharge) Vaginal Exam: Yes: Discharge Cervix: Yes: Other (Unable to do speculum exam due to previous hip surgery) Neurological: No: Alert, Oriented Psychiatric: Yes: Alert, Oriented Labs: CBC, BMP 01/28/17 06:00 01/28/17 06:00 Problem List - Problems (1) Cystitis Code(s): N30.90 - CYSTITIS, UNSPECIFIED WITHOUT HEMATURIA (2) Vaginal bleeding Code(s): N93.9 - ABNORMAL UTERINE AND VAGINAL BLEEDING, UNSPECIFIED Assessment/Plan Previous hysterectomy Vaginal bleeding most likely due bladder pathology. No GOLF PLAYER ASSISTANT pathology identified F/U tumor markers Consider urology consult for possible cystoscopy
--- NOTE | 2017-01-28 17:58 | PN ---
Progress Note, Physician Chief Complaint: 86 year old female with a past medical history of blood in diaper, treated here 12/21-12/23 for same, no active GI bleed noted at time, + fecal impaction. She now presents again with blood in diaper, "vaginal bleeding" and agitation In ER Pt has dementia and is unable to cooperate . Ativan Given In Er and Pt became Lethargic. Pt also had Low BP hence Pt was admitted. - Current Medication List Current Medications: Active Medications Ascorbic Acid (Vitamin C -) 500 mg PO BID [facility] Last Admin: 01/28/17 09:13 Dose: 500 mg Calcium Carbonate (Os-Vick 500mg -) 500 mg PO DAILY [facility] Last Admin: 01/28/17 09:13 Dose: 500 mg Cholecalciferol (Vitamin D3 -) 1,000 unit PO DAILY [facility] Last Admin: 01/28/17 09:13 Dose: 1,000 unit Docusate Sodium (Colace -) 200 mg PO HS [facility] Last Admin: 01/27/17 22:16 Dose: 200 mg CEFTRIAXONE 1 G/50 ML PREMIX (Ceftriaxone 1 Gm-D5w Bag) 50 mls @ 100 mls/hr IVPB HS [facility] Last Admin: 01/27/17 22:16 Dose: 100 mls/hr Sodium Chloride (Normal Saline -) 1,000 mls @ 75 mls/hr IV ASDIR [facility] Stop: 01/29/17 23:14 Last Admin: 01/27/17 23:31 Dose: 75 mls/hr Magnesium Hydroxide (Milk Of Magnesia -) 30 ml PO DAILY PRN PRN Reason: CONSTIPATION Multivitamins/Minerals (Theragran-M) 1 each PO DAILY [facility] Last Admin: 01/28/17 09:13 Dose: 1 each Polyethylene Glycol (Miralax (For Daily Use) -) 17 gm PO DAILY [facility] Last Admin: 01/28/17 09:15 Dose: 17 gm Senna (Senna -) 2 tab PO HS [facility] Last Admin: 01/27/17 22:16 Dose: 2 tab Trazodone HCl (Desyrel -) 25 mg PO BID [facility] Last Admin: 01/28/17 09:13 Dose: 25 mg Warfarin Sodium (Coumadin -) 2 mg PO DAILY@1800 [facility] - Objective Vital Signs: Vital Signs Temperature 97.4 F L 01/28/17 10:00 Pulse Rate 67 01/28/17 10:00 Respiratory Rate 20 01/28/17 10:00 Blood Pressure 117/87 01/28/17 10:00 O2 Sat by Pulse Oximetry (%) 97 01/28/17 10:00 Constitutional: Yes: No Distress Eyes: Yes: Conjunctiva Clear, EOM Intact HENT: Yes: Atraumatic, Normocephalic Neck: Yes: Supple, Trachea Midline Cardiovascular: Yes: Regular Rate and Rhythm, S1, S2 Respiratory: Yes: Regular, CTA Bilaterally Gastrointestinal: Yes: Normal Bowel Sounds, Soft Genitourinary: Yes: Vaginal Bleeding Musculoskeletal: Yes: Joint Stiffness Edema: No Neurological: Yes: Cran Nerves II-XII Intact, Other (Dementia) Labs: CBC, BMP 01/28/17 06:00 01/28/17 06:00 INR, PTT INR 2.45 (0.82-1.09) H 01/28/17 06:00 Problem List - Problems (1) Vaginal bleeding Code(s): N93.9 - ABNORMAL UTERINE AND VAGINAL BLEEDING, UNSPECIFIED (2) UTI (urinary tract infection) Code(s): N39.0 - URINARY TRACT INFECTION, SITE NOT SPECIFIED Qualifiers: Urinary tract infection type: site unspecified Hematuria presence: with hematuria Qualified Code(s): N39.0 - Urinary tract infection, site not specified; R31.9 - Hematuria, unspecified; R31.9 - Hematuria, unspecified
[2017-01-28] MEDS: DOCUSATE SODIUM 100 MG CAPSULE (FP) PO SCH (21:54)
[2017-01-28] MEDS: CEFTRIAXONE 1 G/50 ML PREMIX 50 ML IVPB SCH (21:54)
[2017-01-28] MEDS: SENNOSIDES 8.6MG TABLET (FP) PO SCH (21:56)
[2017-01-29] MEDS: SODIUM CHLORIDE 1,000 ML IV SCH ×2 (00:24→17:34)
[2017-01-29 08:15] LABS: INR 1.81 (0.82-1.09); PROTHROMBIN TIME (PATIENT) 20.5 SEC (9.98-11.88)
[2017-01-29] MEDS: POLYETHYLENE GLYCOL 3350 119 GM BTL PO SCH (10:58)
[2017-01-29] MEDS: CALCIUM (OYSTER SHELL) 500 MG TABLET (FP) PO SCH (10:58)
[2017-01-29] MEDS: MULTIVITAMINS THER W-MINERALS COMBO TABLET (FP) PO SCH (10:58)
[2017-01-29] MEDS: CHOLECALCIFEROL (VITAMIN D3) 1,000 UNIT TABLET (FP) PO SCH (10:58)
[2017-01-29] MEDS: traZODone HCL 50 MG TABLET (FP) PO SCH ×2 (10:58→21:55)
[2017-01-29] MEDS: ASCORBIC ACID 500 MG TABLET (FP) PO SCH ×2 (10:59→21:55)
[2017-01-29] MEDS: WARFARIN NA 2 MG TABLET (UD) PO SCH (17:34)
[2017-01-29] MEDS: CEFTRIAXONE 1 G/50 ML PREMIX 50 ML IVPB SCH (21:55)
[2017-01-29] MEDS: SENNOSIDES 8.6MG TABLET (FP) PO SCH (21:55)
[2017-01-29] MEDS: DOCUSATE SODIUM 100 MG CAPSULE (FP) PO SCH (21:56)
[2017-01-30 08:05] LABS: INR 1.65 (0.82-1.09); PROTHROMBIN TIME (PATIENT) 18.7 SEC (9.98-11.88)
[2017-01-30] MEDS: ASCORBIC ACID 500 MG TABLET (FP) PO SCH ×2 (09:58→21:38)
[2017-01-30] MEDS: CALCIUM (OYSTER SHELL) 500 MG TABLET (FP) PO SCH (09:58)
[2017-01-30] MEDS: CHOLECALCIFEROL (VITAMIN D3) 1,000 UNIT TABLET (FP) PO SCH (09:58)
[2017-01-30] MEDS: MULTIVITAMINS THER W-MINERALS COMBO TABLET (FP) PO SCH (09:58)
[2017-01-30] MEDS: POLYETHYLENE GLYCOL 3350 119 GM BTL PO SCH (09:59)
[2017-01-30] MEDS: traZODone HCL 50 MG TABLET (FP) PO SCH ×2 (10:00→21:38)
--- NOTE | 2017-01-30 10:16 | PN ---
Progress Note (short form) - Note Progress Note: patient seen and examined in her room awake, alert as per nursing some dried blood in the diaper OB consult noted Vital Signs Temp 98.8 F 01/30/17 06:00 Pulse 69 01/30/17 06:00 Resp 20 01/30/17 06:00 BP 126/54 01/30/17 06:00 Pulse Ox 95 01/29/17 21:00 Intake & Output 01/29/17 01/29/17 01/30/17 11:59 23:59 11:59 Intake Total 875 1275 825 Balance 875 1275 825 Intake: IV 825 825 825 Normal Saline - 1,000 ml 825 825 825 @ 75 mls/hr IV ASDIR [facility] Rx#:[id number] IVPB 50 50 Oral 400 Other: Voiding Method Incontinent Incontinent Incontinent Bowel Movement Yes # Bowel Movements 1 Active Medications Ascorbic Acid (Vitamin C -) 500 mg PO BID [facility] Last Admin: 01/30/17 09:58 Dose: 500 mg Calcium Carbonate (Os-Vick 500mg -) 500 mg PO DAILY [facility] Last Admin: 01/30/17 09:58 Dose: 500 mg Cholecalciferol (Vitamin D3 -) 1,000 unit PO DAILY [facility] Last Admin: 01/30/17 09:58 Dose: 1,000 unit Docusate Sodium (Colace -) 200 mg PO [facility] Last Admin: 01/29/17 21:56 Dose: 200 mg CEFTRIAXONE 1 G/50 ML PREMIX (Ceftriaxone 1 Gm-D5w Bag) 50 mls @ 100 mls/hr IVPB [facility] Last Admin: 01/29/17 21:55 Dose: 100 mls/hr Magnesium Hydroxide (Milk Of Magnesia -) 30 ml PO DAILY PRN PRN Reason: CONSTIPATION Multivitamins/Minerals (Theragran-M) 1 each PO DAILY [facility] Last Admin: 01/30/17 09:58 Dose: 1 each Polyethylene Glycol (Miralax (For Daily Use) -) 17 gm PO DAILY [facility] Last Admin: 01/30/17 09:59 Dose: 17 gm Senna (Senna -) 2 tab PO HS [facility] Last Admin: 01/29/17 21:55 Dose: 2 tab Trazodone HCl (Desyrel -) 25 mg PO BID [facility] Last Admin: 01/30/17 10:00 Dose: 25 mg Warfarin Sodium (Coumadin -) 2 mg PO DAILY@1800 [facility] Last Admin: 01/29/17 17:34 Dose: 2 mg Abnormal Lab Results 01/30/17 06:15 PT with INR 18.70 H INR 1.65 H n- Alert, awake, NAD Neck-supple Lungs-clear CVS--S1 and S2 regular Abdomen--- soft--NT - and slightly distended. Extremities--LLE edema 2 plus, RLE NO EDEMA ASSESSMENT/PLAN: Vaginal bleeding with palpable firm mass - pelvic sono without significant findings Gynecology consult NOTED- h/o hysterectomy - WILL CONSIDER urology consult- OUT PATIENT - UTI - cont ceftriaxone , wbc normal - constipation - continue laxatives Localized edema- LLE- DVT screen on coumadin INR sub therapeutic held for vaginal bleed DVT PPX - on coumadin for DVT Problem List - Problems (1) Vaginal bleeding Code(s): N93.9 - ABNORMAL UTERINE AND VAGINAL BLEEDING, UNSPECIFIED (2) Dementia Code(s): F03.90 - UNSPECIFIED DEMENTIA WITHOUT BEHAVIORAL DISTURBANCE (3) Dvt femoral (deep venous thrombosis) Code(s): I82.419 - ACUTE EMBOLISM AND THROMBOSIS OF UNSPECIFIED FEMORAL VEIN (4) Fecal impaction of colon Code(s): K56.41 - FECAL IMPACTION
[2017-01-30 10:29] LABS: BASO # 0.1 # (0.1-1); BASO % 0.6 % (0-2.0); EOS # 0.2 # (0-4.5); EOS % 1.8 % (0-4.5); LYMPH # 1.5 (8-40); MCH 27.2 pg (25.7-33.7); MCHC 31.7 g/dl (32.0-36.0); MEAN PLT VOLUME 7.7 fl (7.5-11.1); MONO # 0.6 # (3.8-10.2); NEUT # 6.6 # (42.8-82.8); PLATELET COUNT 348 K/MM3 (134-434); RDW 15.2 % (11.6-15.6); WHITE BLOOD COUNT 8.9 K/mm3 (4.0-10.0)
[2017-01-30 11:01] LABS: ALBUMIN 2.3 g/dl (3.4-5.0); ALK PHOS 145 U/L (45-117); ANION GAP 9 (8-16); BILIRUBIN,TOTAL 0.5 mg/dL (0.2-1.0); CALCIUM 7.9 mg/dL (8.5-10.1); CO2 21 mmol/L (21-32); CREATININE 0.5 mg/dL (0.55-1.02); GLUCOSE,RANDOM 94 mg/dL (74-106); SGPT/ALT 19 U/L (12-78); TOT PROT 5.6 g/dl (6.4-8.2)
[2017-01-30 11:11] LABS: SGOT/AST 26 U/L (15-37)
[2017-01-30] MEDS: WARFARIN NA 2 MG TABLET (UD) PO SCH (17:14)
--- NOTE | 2017-01-30 17:20 | PN ---
Progress Note (short form) - Note Progress Note: late note entry for 01/29. patient was seen yesterday was comfortable Afebrile All labs noted On exam Vitals--was stable Lungs--- were clear CVS--- S1 and S2 regular Abdomen--soft Extremities--no edema Neuro--awake Assessment and plan Clinically better Antibiotics MANUAL MACHINIST consult noted urinalysis noted--Will hold off urology consult for now considering her age Also patient currently being treated for UTI Patient has only 3+ RBCs in the urine Patient also on anticoagulation will monitor Problem List - Problems (1) Vaginal bleeding Code(s): N93.9 - ABNORMAL UTERINE AND VAGINAL BLEEDING, UNSPECIFIED (2) Dementia Code(s): F03.90 - UNSPECIFIED DEMENTIA WITHOUT BEHAVIORAL DISTURBANCE (3) Dvt femoral (deep venous thrombosis) Code(s): I82.419 - ACUTE EMBOLISM AND THROMBOSIS OF UNSPECIFIED FEMORAL VEIN (4) Fecal impaction of colon Code(s): K56.41 - FECAL IMPACTION
--- NOTE | 2017-01-30 17:24 | PN ---
Progress Note (short form) - Note Progress Note: patient seen and examined today with BUTT MAKER [place]. Documentation reviewed. case discussed Nursing staff reports small amount of blood and bladder Ultrasound reviewed again Patient overall comfortable Poor historian Vital Signs Temp 97.6 F 01/30/17 14:17 Pulse 68 01/30/17 14:17 Resp 20 01/30/17 14:17 BP 110/50 01/30/17 14:17 Pulse Ox 97 01/30/17 09:00 Intake & Output 01/29/17 01/30/17 01/30/17 23:59 11:59 23:59 Intake Total 1275 825 350 Balance 1275 825 350 Intake: IV 825 825 Normal Saline - 1,000 ml 825 825 @ 75 mls/hr IV ASDIR [facility] Rx#:[id number] IVPB 50 Oral 400 350 Other: Voiding Method Incontinent Incontinent Incontinent # Unmeasured Voids Woo 1 Bowel Movement Yes Yes: small # Bowel Movements 1 Active Medications Ascorbic Acid (Vitamin C -) 500 mg PO BID [facility] Last Admin: 01/30/17 09:58 Dose: 500 mg Calcium Carbonate (Os-Vick 500mg -) 500 mg PO DAILY [facility] Last Admin: 01/30/17 09:58 Dose: 500 mg Cholecalciferol (Vitamin D3 -) 1,000 unit PO DAILY [facility] Last Admin: 01/30/17 09:58 Dose: 1,000 unit Docusate Sodium (Colace -) 200 mg PO [facility] Last Admin: 01/29/17 21:56 Dose: 200 mg CEFTRIAXONE 1 G/50 ML PREMIX (Ceftriaxone 1 Gm-D5w Bag) 50 mls @ 100 mls/hr IVPB [facility] Last Admin: 01/29/17 21:55 Dose: 100 mls/hr Magnesium Hydroxide (Milk Of Magnesia -) 30 ml PO DAILY PRN PRN Reason: CONSTIPATION Multivitamins/Minerals (Theragran-M) 1 each PO DAILY [facility] Last Admin: 01/30/17 09:58 Dose: 1 each Polyethylene Glycol (Miralax (For Daily Use) -) 17 gm PO DAILY [facility] Last Admin: 01/30/17 09:59 Dose: 17 gm Senna (Senna -) 2 tab PO [facility] Last Admin: 01/29/17 21:55 Dose: 2 tab Trazodone HCl (Desyrel -) 25 mg PO BID [facility] Last Admin: 01/30/17 10:00 Dose: 25 mg Warfarin Sodium (Coumadin -) 2 mg PO DAILY@1800 [facility] Last Admin: 01/30/17 17:14 Dose: 2 mg CBC, BMP 01/30/17 10:05 01/30/17 10:05 physical exam n- Alert, awake, NAD Neck-supple Lungs-clear CVS--S1 and S2 regular Abdomen--- soft--NT - and slightly distended. Extremities--LLE edema 2 plus, RLE NO EDEMA assessment and plan Chart reviewed Continue present care Antibiotics We will consult urology---In house Hold anticoagulation for now. Patient is DNR. We will follow. Problem List - Problems (1) Vaginal bleeding Code(s): N93.9 - ABNORMAL UTERINE AND VAGINAL BLEEDING, UNSPECIFIED (2) Dementia Code(s): F03.90 - UNSPECIFIED DEMENTIA WITHOUT BEHAVIORAL DISTURBANCE (3) Dvt femoral (deep venous thrombosis) Code(s): I82.419 - ACUTE EMBOLISM AND THROMBOSIS OF UNSPECIFIED FEMORAL VEIN (4) Fecal impaction of colon Code(s): K56.41 - FECAL IMPACTION
[2017-01-30] MEDS: DOCUSATE SODIUM 100 MG CAPSULE (FP) PO SCH (21:38)
[2017-01-30] MEDS: SENNOSIDES 8.6MG TABLET (FP) PO SCH (21:39)
[2017-01-30] MEDS: CEFTRIAXONE 1 G/50 ML PREMIX 50 ML IVPB SCH (21:39)
--- NOTE | 2017-01-30 23:13 | CON.GU ---
Consult Consult Specialty:: Referred by:: Eugenio Reason for Consultation:: gross hematuria - History of Present Illness Chief Complaint: gross hematuria History of Present Illness: 86 year old female admitted with blood in her diaper. She has dementia and bipolar disorder. She had a CT scan done one month ago with severe constipation , but no independent pathology. She returns and current imaging shows persistent fecal impaction. 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 Cardio/Vascular: Yes: Deep Vein Thrombosis (but not confirmed by 10/10/16 duplex doppler, has chronic LLE edema), HTN Gastrointestinal: Yes: Constipation, GERD Renal/: Yes: Hematuria ...: No Psych: Yes: Bipolar, Depression - Past Surgical History Past Surgical History: Yes: Cholecystectomy, Hysterectomy, Joint Replacement ( bilateral knee replacments) - Alcohol/Substance Use Hx Alcohol Use: No - Smoking History Smoking history: Unknown if ever smoked Have you smoked in the past 12 months: No Aproximately how many cigarettes per day: 0 If you are a former smoker, when did you quit?: quit age 62 - Social History Usual Living Arrangement: Long-Term ADL: Support Services 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 Travel: No Home Medications - Allergies Allergies/Adverse Reactions: Allergies Allergy/AdvReac Type Severity Reaction Status Date / Time No Known Allergies Allergy Unverified 01/26/17 22:33 - Home Medications Home Medications: Ambulatory Orders Docusate Sodium 200 mg PO HS 07/05/16 Trazodone HCl 25 mg PO BID 07/05/16 Ascorbic Acid [Vitamin C] 500 mg PO BID 11/11/16 Calcium Carbonate [Oyster Shell Calcium] 500 mg PO DAILY 11/11/16 Multivit with Iron,Minerals [Compete] 1 tab PO DAILY 11/11/16 Sennosides [Senna] 2 tab PO HS 11/11/16 Warfarin Sodium [Coumadin] 2 mg PO DAILY 11/11/16 Cholecalciferol (Vitamin D3) [Vitamin D3 -] 1,000 units PO DAILY 12/21/16 Magnesium Hydrox 2400MG/30Ml [Milk of Magnesia -] 30 ml PO DAILY PRN 12/21/16 Polyethylene Glycol 3350 [Miralax 119 gm Btl -] 17 gm PO TID PRN #1 bottle 12/23 Review of Systems - Review of Systems Genitourinary: reports: Hematuria Physical Exam- Vital Signs: Vital Signs Temperature 97.9 F 01/30/17 19:02 Pulse Rate 66 01/30/17 19:02 Respiratory Rate 20 01/30/17 19:02 Blood Pressure 141/77 01/30/17 19:02 O2 Sat by Pulse Oximetry (%) 97 01/30/17 09:00 Constitutional: Yes: No Distress, Calm Renal/: No: Bladder Distention, CVA Tenderness - Left, CVA Tenderness - Right Kidneys: No: Flank Pain Left, FLank Pain Right Labs: CBC, BMP 01/30/17 10:05 01/30/17 10:05 Imaging - Results X-ray: Report Reviewed Cat Scan: Report Reviewed Ultrasound: Report Reviewed Problem List - Problems (1) Hematuria Assessment/Plan: treat UTI. consider cystoscopy once treated. Code(s): R31.9 - HEMATURIA, UNSPECIFIED (2) Fecal impaction of colon Assessment/Plan: disimpaction recommended as her sigmoid colon is causing external compression of her left ureter Code(s): K56.41 - FECAL IMPACTION
[2017-01-31 06:23] VITALS: TEMP 98.6
[2017-01-31] MEDS: ASCORBIC ACID 500 MG TABLET (FP) PO SCH (10:51)
[2017-01-31] MEDS: CHOLECALCIFEROL (VITAMIN D3) 1,000 UNIT TABLET (FP) PO SCH (10:51)
[2017-01-31] MEDS: traZODone HCL 50 MG TABLET (FP) PO SCH (10:51)
[2017-01-31] MEDS: MULTIVITAMINS THER W-MINERALS COMBO TABLET (FP) PO SCH (10:51)
[2017-01-31] MEDS: CALCIUM (OYSTER SHELL) 500 MG TABLET (FP) PO SCH (10:51)
[2017-01-31] MEDS: POLYETHYLENE GLYCOL 3350 119 GM BTL PO SCH (10:52)
--- NOTE | 2017-01-31 13:00 | DS ---
Physical Examination Vital Signs: Vital Signs Temperature 98.6 F 01/31/17 06:00 Pulse Rate 72 01/31/17 06:00 Respiratory Rate 20 01/31/17 06:00 Blood Pressure 141/71 01/31/17 06:00 O2 Sat by Pulse Oximetry (%) 95 01/30/17 21:00 Findings/Remarks: comfortable no distress. Constitutional: Yes: No Distress, Calm Eyes: Yes: Conjunctiva Clear Neck: Yes: Supple Cardiovascular: Yes: Regular Rate and Rhythm Respiratory: Yes: CTA Bilaterally Gastrointestinal: Yes: Normal Bowel Sounds, Soft Edema: LLE: Trace, RLE: Trace Labs: CBC, BMP 01/30/17 10:05 01/30/17 10:05 Discharge Summary Reason For Visit: URINARY TRACT INFECTION Current Active Problems Cystitis (Acute) Hematuria (Acute) UTI (urinary tract infection) (Acute) Vaginal bleeding (Acute) Hospital Course: 86 year old female with a past medical history of blood in diaper, treated here 12/21-12/23 for same, no active GI bleed noted at time, + fecal impaction. She now presents again with blood in diaper, "vaginal bleeding" [facility]. 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 pt now stable for discharge. meds reconcilled discussed with nursing staff pt also dnr per [facility] records discharge time 35 min in examining / documenting and coordating care. Condition: Good - Instructions [facility] - Home Medications Comprehensive Discharge Medication List: Ambulatory Orders Trazodone HCl 25 mg PO BID 07/05/16 Ascorbic Acid [Vitamin C] 500 mg PO BID 11/11/16 Calcium Carbonate [Oyster Shell Calcium] 500 mg PO DAILY 11/11/16 Multivit with Iron,Minerals [Compete] 1 tab PO DAILY 11/11/16 Sennosides [Senna] 2 tab PO HS 11/11/16 Warfarin Sodium [Coumadin] 2 mg PO DAILY 11/11/16 Cholecalciferol (Vitamin D3) [Vitamin D3 -] 1,000 units PO DAILY 12/21/16 Magnesium Hydrox 2400MG/30Ml [Milk of Magnesia -] 30 ml PO DAILY PRN 12/21/16 Polyethylene Glycol 3350 [Miralax 119 gm Btl -] 17 gm PO TID PRN #1 bottle 12/23 Docusate Sodium [Colace -] 200 mg PO HS capsule 01/31/17 Trazodone HCl [Desyrel -] 25 mg PO BID tablet 01/31/17
[2017-01-31 14:43] VITALS: BP 155/76; PULSE 79
== END 2017-01-31 18:46 | DRG 690 ==
LOC: JER 22:22 → JERBED 01-27 03:18 → J7W 01-27 05:44 → OBSVTOIN 01-27 09:50 → J7W 01-27 16:30
PROVIDERS: ADMIT Internal Medicine; ATTEND Internal Medicine
DX: N39.0 Urinary tract infection, site not specified (principal); N93.9 Abnormal uterine and vaginal bleeding, unspecified; F03.90 Unspecified dementia, unspecified severity, without behavioral disturbance, psychotic disturbance, mood disturbance, and anxiety; R31.0 Gross hematuria; K56.41 Fecal impaction; K21.9 Gastro-esophageal reflux disease without esophagitis
CPT/HCPCS: 36415; 74000-TC; 76856-TC; 80048; 80053; 81003; 81015; 82378; 83735; 84100; 85025; 85610; 86304; 86850; 86870; 86900; 86901; 86902; 87040; 87086; 87186; 93971-TC; 99283-25; G0378

== ENCOUNTER 2017-08-31 10:55 | Observation (INO) | payer OTHER, BC ==
[2017-08-31] MEDS ORDERED: LORazepam 2 MG/ML SDV VIAL ONE (11:57)
--- NOTE | 2017-08-31 11:58 | PDOC ---
History of Present Illness <Patti Dupont - Last Filed: 08/31/17 12:58> - General History Source: Patient Exam Limitations: No Limitations - History of Present Illness Initial Comments: The patient is a 86 year old female with a significant past medical history of CHF, dementia, and DVT on Xarelto presenting to the emergency department with rectal bleeding after an enema given by her nurse at [facility] today. Patient herself is unable to contribute any history due to severe dementia. Allergies: NKDA <Bill Mccann - Last Filed: 08/31/17 17:24> - General Chief Complaint: Bleeding from Anus Stated Complaint: Rectal Bleed Time Seen by Provider: 08/31/17 11:17 Past History <Patti Dupont - Last Filed: 08/31/17 12:58> - Past Medical History Cardiac Disorders: Yes (was on Lasix) COPD: No CHF: Yes Dementia: Yes GI Disorders: Yes (GERD) Disorders: (UTI) HTN: Yes - Surgical History Abdominal Surgery: No Appendectomy: No Cardiac Surgery: No Cholecystectomy: No Gastric Stapling: No GI Surgery: No Lung Surgery: No Neurologic Surgery: No Orthopedic Surgery: Yes - Immunization History Td Vaccination: No TDAP Vaccination: No Immunization Up to Date: Yes - Suicide/Smoking/Psychosocial Hx Smoking Status: No Smoking History: Former smoker Years of Tobacco Use: 0 Have you smoked in the past 12 months: No Number of Cigarettes Smoked Daily: 0 If you are a former smoker, when did you quit?: quit age 62 Cigars Per Day: 0 Information on smoking cessation initiated: No Hx Alcohol Use: No Drug/Substance Use Hx: No Substance Use Type: None Hx Substance Use Treatment: No <Bill Mccann - Last Filed: 08/31/17 17:24> - Past Medical History Allergies/Adverse Reactions: Allergies Allergy/AdvReac Type Severity Reaction Status Date / Time No Known Allergies Allergy Unverified 01/26/17 22:33 Home Medications: Ambulatory Orders Trazodone HCl 25 mg PO BID 07/05/16 Ascorbic Acid [Vitamin C] 500 mg PO BID 11/11/16 Calcium Carbonate [Oyster Shell Calcium] 500 mg PO DAILY 11/11/16 Multivit with Iron,Minerals [Compete] 1 tab PO DAILY 11/11/16 Sennosides [Senna] 2 tab PO HS 11/11/16 Cholecalciferol (Vitamin D3) [Vitamin D3 -] 1,000 units PO DAILY 12/21/16 Magnesium Hydrox 2400MG/30Ml [Milk of Magnesia -] 30 ml PO DAILY PRN 12/21/16 Polyethylene Glycol 3350 [Miralax 119 gm Btl -] 17 gm PO TID PRN #1 bottle 12/23 Docusate Sodium [Colace -] 200 mg PO HS capsule 01/31/17 traZODone HCL [Desyrel -] 25 mg PO BID tablet 01/31/17 Rivaroxaban [Xarelto -] 15 mg PO DAILY 08/31/17 Review of Systems - Review of Systems Able to Perform ROS?: Yes Comments:: 08/31/17 15:57 unable to obtain due to dementia. Hx as per nursing notes. <Bill Mccann - Last Filed: 08/31/17 17:24> *Physical Exam - Vital Signs Last Vital Signs Temp Pulse Resp BP Pulse Ox 96.2 F L 82 20 122/63 99 08/31/17 11:07 08/31/17 11:07 08/31/17 11:07 08/31/17 11:07 08/31/17 12:09 <Patti Dupont - Last Filed: 08/31/17 12:58> - Vital Signs Last Vital Signs Temp Pulse Resp BP Pulse Ox 96.2 F L 82 20 122/63 96 08/31/17 11:07 08/31/17 11:07 08/31/17 11:07 08/31/17 11:07 08/31/17 11:07 - Physical Exam Comments: 08/31/17 15:57 GENERAL: The patient is awake, aox1, occasionally moaning/screaming HEAD: Normocephalic, atraumatic. EYES: extraocular movements intact, sclera anicteric, conjunctiva clear. ENT: Normal voice, Moist mucous membranes. NECK: Normal range of motion, supple LUNGS: Breath sounds equal, clear to auscultation bilaterally. No wheezes, no rhonchi, no rales. HEART: Regular rate and rhythm, ABDOMEN: diffusely tender abdomen, +soft hernia in RUQ RECTAL: deferred due to concern for perf, brownish stool EXTREMITIES: Normal range of motion, no edema. No cyanosis. No erythema, or tenderness. NEUROLOGICAL: (+) AOx1. No facial assymetry, SKIN: Warm, Dry, normal turgor, <Siobhan,Bill - Last Filed: 08/31/17 17:24> Heart Score/ECG Review - ECG Impressions Comment:: 08/31/17 13:45 Twelve-lead EKG was performed and reviewed by me. There is normal sinus rhythm with a rate of 83 LBBB <Siobhan,Bill - Last Filed: 08/31/17 17:24> ED Treatment Course - LABORATORY CBC & Chemistry Diagram: 08/31/17 11:50 08/31/17 11:50 - ADDITIONAL ORDERS Additional order review: Laboratory Results 08/31/17 08/31/17 08/31/17 11:58 11:50 11:50 PT with INR 13.50 H INR 1.19 H PTT (Actin FS) 26.0 L D VBG pH 7.10 L* POC VBG pCO2 72.4 H* POC VBG pO2 38.2 Mixed VBG HCO3 21.4 Lactic Acid Stool Occult Blood Positive 08/31/17 11:45 PT with INR INR PTT (Actin FS) VBG pH POC VBG pCO2 POC VBG pO2 Mixed VBG HCO3 Lactic Acid 3.1 H* Stool Occult Blood 08/31/17 11:50 RBC 4.67 MCV 84.3 MCHC 33.2 RDW 16.6 H MPV 8.5 D Neutrophils % 77.6 Lymphocytes % 14.6 Monocytes % 5.5 Eosinophils % 1.9 Basophils % 0.4 - RADIOLOGY Radiograph Interpretation: EXAM#: TYPE/EXAM: RESULT: [id number] RAD/CHEST X-RAY PORTABLE* Portable chest: Sepsis Since 11/03/2012 there is no change of an adverse nature. There is a normal heart , unfolded aorta, possible hiatal hernia and clear lung luna. An acute process is not seen. Reported By: Eric Jones MD 08/31/17 4907 - Medications Given in the ED: ED Medications Discontinued Medications Generic Name Dose Route Start Last Admin Trade Name Freq PRN Reason Stop Dose Admin Lorazepam 0.5 mg 08/31/17 11:39 08/31/17 12:04 Ativan Injection - IVPUSH 08/31/17 11:40 0.5 mg ONCE ONE Administration <Patti Dupont - Last Filed: 08/31/17 12:58> - LABORATORY CBC & Chemistry Diagram: 08/31/17 11:50 08/31/17 11:50 - RADIOLOGY Radiology Studies Ordered: Category Date Time Status CHEST X-RAY PORTABLE* [RAD] Stat Radiology 08/31/17 11:32 Ordered <Bill Mccann - Last Filed: 08/31/17 17:24> Medical Decision Making - Medical Decision Making 08/31/17 12:01 86y F hx of dementia, dvt on eliquis, chf, oa, presents with rectal bleeding. Per NH, the pt was getting an enema and there was rectal bleeding and was sent here for evalutaion. History limited from patient, but pt is occasioally screaming out in pain. her abd is firm and idffusely tender to touch. will obtain labs, ct abd to r/o perforation pt is agitated, grabbing at nurses and a danger to herself and staff. attempted to discuss with her to stop grabbing/moving/screaming but uncessessful. will give pt .5mg of ativan 08/31/17 15:57 blood work noted for respiratory acidosis la elevated to 3.5 will repeat after hydration 08/31/17 16:45 ct abdomen noted for fecal retention no signs of perforamtion or other acute disease will admit for further managment 08/31/17 17:23 case dw archeology professor hayden agree with admissio for further management will admit to med surg under dr. burgos service Case discussed in detail with admitting physician including history, physical exam and ancillary studies. Admitting physician has assumed care for the patient, will follow all pending diagnostics and will complete the evaluation and treatment. <Bill Mccann - Last Filed: 08/31/17 17:24> *DC/Admit/Observation/Transfer <Patti Dupont - Last Filed: 08/31/17 12:58> - Discharge Dispostion Decision to Admit order: Yes <Bill Mccann - Last Filed: 08/31/17 17:24> Diagnosis at time of Disposition: Lactic acid acidosis, Respiratory acidosis Constipation Qualifiers: Constipation type: other constipation type Qualified Code(s): K59.09 - Other constipation - Discharge Dispostion Condition at time of disposition: Stable - Referrals Referrals: Edenilson Walters [Primary Care Provider] - - Patient Instructions - Post Discharge Activity
[2017-08-31 12:07] LABS: BASO % 0.4 % (0-2.0); EOS % 1.9 % (0-4.5); HEMATOCRIT 39.4 % (32.4-45.2); HEMOGLOBIN 13.1 GM/dL (10.7-15.3); LYMPH % 14.6 % (8-40); MCHC 33.2 g/dl (32.0-36.0); MEAN CELL VOLUME 84.3 fl (80-96); MEAN PLT VOLUME 8.5 fl (7.5-11.1); MONO % 5.5 % (3.8-10.2); NEUT % 77.6 % (42.8-82.8); PLATELET COUNT 466 K/MM3 (134-434); RBC 4.67 M/mm3 (3.60-5.2); RDW 16.6 % (11.6-15.6); WHITE BLOOD COUNT 8.9 K/mm3 (4.0-10.0)
[2017-08-31 12:14] LABS: VENOUS PC02 72.4 mmHg (38-52); VENOUS PH 7.1 (7.32-7.42); VENOUS PO2 38.2 mmHg (28-48)
[2017-08-31 12:24] LABS: INR 1.19 (0.82-1.09); PROTHROMBIN TIME (PATIENT) 13.5 SEC (9.7-13.0)
[2017-08-31] MEDS ORDERED: SODIUM CHLORIDE 500 ML IV STA (12:37)
[2017-08-31 12:47] LABS: ALBUMIN 2.9 g/dl (3.4-5.0); ANION GAP 6 (8-16); BLOOD UREA NITROGEN 32 mg/dL (7-18); CALCIUM 9.2 mg/dL (8.5-10.1); CHLORIDE 106 mmol/L (98-107); CO2 29 mmol/L (21-32); CREATININE 0.8 mg/dL (0.55-1.02); GLUCOSE,RANDOM 127 mg/dL (74-106); SGPT/ALT 26 U/L (12-78); SODIUM 141 mmol/L (136-145); TOT PROT 6.9 g/dl (6.4-8.2)
[2017-08-31 12:50] LABS: ALK PHOS 178 U/L (45-117); BILIRUBIN,TOTAL 0.3 mg/dL (0.2-1.0)
[2017-08-31 13:00] LABS: POTASSIUM 5.3 mmol/L (3.5-5.1)
[2017-08-31 13:01] LABS: SGOT/AST 44 U/L (15-37)
--- NOTE | 2017-08-31 13:26 | EKG ---
Test Reason : Blood Pressure : / mmHG Vent. Rate : 083 BPM Atrial Rate : 083 BPM P-R Int : 142 ms QRS Dur : 140 ms QT Int : 436 ms P-R-T Axes : 075 007 086 degrees QTc Int : 512 ms NORMAL SINUS RHYTHM LEFT BUNDLE BRANCH BLOCK ABNORMAL ECG WHEN COMPARED WITH ECG OF 21-DEC-2016 11:29, LEFT BUNDLE BRANCH BLOCK IS NOW PRESENT BORDERLINE CRITERIA FOR LATERAL INFARCT ARE NO LONGER PRESENT CRITERIA FOR INFERIOR INFARCT ARE NO LONGER PRESENT Confirmed by CALLIE WINSTON MD ([id number]) on 08/31/2017 1:26:02 PM Referred By: Confirmed By:CALLIE WINSTON MD
[2017-08-31 15:54] LABS: URINE APPEARANCE CLOUDY; URINE BILIRUBIN NEGATIVE (<2.0 mg/dL); URINE COLOR DKYELLOW; URINE GLUCOSE (UA) NEGATIVE (NEGATIVE); URINE KETONE NEGATIVE (NEGATIVE); URINE NITRITE NEGATIVE (NEGATIVE); URINE PROTEIN NEGATIVE (NEGATIVE); URINE UROBILINOGEN NEGATIVE mg/dL (0.2-1.0)
[2017-08-31 15:59] LABS: URINE LEUK ESTERASE 3+ (NEGATIVE)
[2017-08-31 16:02] LABS: EPI CELLS FEW /HPF (FEW); URINE MUCUS RARE
[2017-08-31 17:34] LABS: VENOUS PH 7.39 (7.32-7.42)
[2017-08-31 17:35] LABS: VENOUS PC02 40.5 mmHg (38-52); VENOUS PO2 34.7 mmHg (28-48)
--- NOTE | 2017-08-31 17:49 | HP ---
Admitting History and Physical - Admission Chief Complaint: sent from [place] with rectal bleeding History of Present Illness: Report gathered from chart, due to pt clinical condition The patient is a 86 year old female with pmhx f CHF, dementia, and DVT on Xarelto presenting to the emergency department with rectal bleeding following enema administration at [facility]. Currently, appears in no acute distress. 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 Cardiovascular: Yes: Deep Vein Thrombosis (but not confirmed by 10/10/16 duplex doppler, has chronic LLE edema), HTN Gastrointestinal: Yes: Constipation, GERD Renal/: Yes: Hematuria Psych: Yes: Bipolar, Depression - Past Surgical History Past Surgical History: Yes: Cholecystectomy, Hysterectomy, Joint Replacement ( bilateral knee replacments) - Smoking History Smoking history: Former smoker Have you smoked in the past 12 months: No Aproximately how many cigarettes per day: 0 If you are a former smoker, when did you quit?: quit age 62 - Alcohol/Substance Use Hx Alcohol Use: No - Social History Usual Living Arrangement: Yes: Alf ADL: Support Services 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 Travel: No Home Medications - Allergies Allergies/Adverse Reactions: Allergies Allergy/AdvReac Type Severity Reaction Status Date / Time No Known Allergies Allergy Unverified 01/26/17 22:33 - Home Medications Home Medications: Ambulatory Orders Trazodone HCl 25 mg PO BID 07/05/16 Ascorbic Acid [Vitamin C] 500 mg PO BID 11/11/16 Calcium Carbonate [Oyster Shell Calcium] 500 mg PO DAILY 11/11/16 Multivit with Iron,Minerals [Compete] 1 tab PO DAILY 11/11/16 Sennosides [Senna] 2 tab PO HS 11/11/16 Cholecalciferol (Vitamin D3) [Vitamin D3 -] 1,000 units PO DAILY 12/21/16 Magnesium Hydrox 2400MG/30Ml [Milk of Magnesia -] 30 ml PO DAILY PRN 12/21/16 Polyethylene Glycol 3350 [Miralax 119 gm Btl -] 17 gm PO TID PRN #1 bottle 12/23 Docusate Sodium [Colace -] 200 mg PO HS capsule 01/31/17 traZODone HCL [Desyrel -] 25 mg PO BID tablet 01/31/17 Rivaroxaban [Xarelto -] 15 mg PO DAILY 08/31/17 Review of Systems Unable to obtain ROS, reason: due to clinical condition Physical Examination Vital Signs: Vital Signs Temperature 96.2 F L 08/31/17 11:07 Pulse Rate 82 08/31/17 11:07 Respiratory Rate 20 08/31/17 11:07 Blood Pressure 122/63 08/31/17 11:07 O2 Sat by Pulse Oximetry (%) 99 08/31/17 12:09 Constitutional: Yes: Well Nourished Eyes: Yes: Conjunctiva Clear HENT: Yes: Atraumatic Cardiovascular: Yes: Regular Rate and Rhythm, S1, S2 Respiratory: Yes: Regular, CTA Bilaterally Gastrointestinal: Yes: Normal Bowel Sounds, Soft, Distention (mild) Musculoskeletal: Yes: WNL Edema: Yes Edema: LLE: 2+ Neurological: Yes: Alert, Confusion, Pre-Existing Deficit Labs: CBC, BMP 08/31/17 11:50 08/31/17 11:50 Imaging - Results Chest X-ray: Report Reviewed, Image Reviewed Cat Scan: Report Reviewed (marked rectosigmoid fectal retention with associate luminal distention) EKG: Report Reviewed, Image Reviewed Problem List - Problems (1) Constipation Code(s): K59.00 - CONSTIPATION, UNSPECIFIED Qualifiers: Constipation type: other constipation type Qualified Code(s): K59.09 - Other constipation (2) Lactic acid acidosis Code(s): E87.2 - ACIDOSIS (3) Respiratory acidosis Code(s): E87.2 - ACIDOSIS (4) Dvt femoral (deep venous thrombosis) Code(s): I82.419 - ACUTE EMBOLISM AND THROMBOSIS OF UNSPECIFIED FEMORAL VEIN (5) Fecal impaction of colon Code(s): K56.41 - FECAL IMPACTION Assessment/Plan Assessment: 86 year old female admitted with fecal retention Plan: 1. Fecal retention - CTAP noted - Start bowel regimen - Surgery consulted 2. Lactic acidosis - Likely due to above process, functional obstruction vs UTI? - Fluids given in ED, repeat level pending - Blood cx pending, urine cx 3. UTI - Hypothermia noted on initial vitals, ?correct - Repeat VS - Will empirically treat with ceftriaxone until urine cx results due to + UA and unable to obtain hx due severe dementia 4. Respiratory acidosis - Resolved 5. Stool occult positive - Likely due to trauma of enema vs GI bleeding - Hgb stable - Trend Hgb - Will continue xarelto 6. Thrombocytosis - Appears chronically elevated - Hx of dvt 7. hx of DVT - Cont xarelto Visit type - Emergency Visit Emergency Visit: Yes Care time: The patient presented to the Emergency Department on the above date and was hospitalized for further evaluation of their emergent condition. - New Patient This patient is new to me today: Yes Date on this admission: 08/31/17 - Critical Care Critical Care patient: No Hospitalist Screening - Colonoscopy Questionnaire Colonoscopy Questionnaire: Colonoscopy Questionnaire - Patient: 50 - 75 years old and never had a screening colonoscopy: Unknown History of colon or rectal polyps, or CA: Unknown History of IBD, Crohn's disease or UC: Unknown History of abdominal radiation therapy as a child: Unknown - Relative: 1 with colon or rectal CA, or polyps at age 60 or younger: Unknown Colon or rectal CA diagnosed at age 45 or younger: Unknown Multiple relatives with colon or rectal CA: Unknown - Outcome: Screening Result: Negative Screen
[2017-08-31] MEDS ORDERED: MINERAL OIL ENEMA 133 ML ENEMA PR ONE (17:58)
[2017-08-31] MEDS ORDERED: SODIUM POLYSTYRENE SULFONATE 15 GM/60 ML BOTTLE PO ONE (18:00)
--- NOTE | 2017-08-31 18:53 | CONSULT ---
Consult Consult Specialty:: general surgery Referred by:: Eder Suazo NP Reason for Consultation:: fecal impaction - History of Present Illness Chief Complaint: constipation and stool impation History of Present Illness: 86 yo female PMH CHF, dementia, and DVT on Xarelto presenting to the emergency department with rectal bleeding following enema administration at [facility]. Currently, appears in no acute distress. She suffers with chronic constipation. Has not had a reported bowel movement in several days. We were asked to assess. 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 Cardio/Vascular: Yes: Deep Vein Thrombosis (but not confirmed by 10/10/16 duplex doppler, has chronic LLE edema), HTN Gastrointestinal: Yes: Constipation, GERD Renal/: Yes: Hematuria Psych: Yes: Bipolar, Depression - Past Surgical History Past Surgical History: Yes: Cholecystectomy, Hysterectomy, Joint Replacement ( bilateral knee replacments) - Alcohol/Substance Use Hx Alcohol Use: No - Smoking History Smoking history: Former smoker Have you smoked in the past 12 months: No Aproximately how many cigarettes per day: 0 If you are a former smoker, when did you quit?: quit age 62 - Social History Usual Living Arrangement: [facility] ADL: Support Services 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 Place of : Other History of Recent Travel: No Home Medications - Allergies Allergies/Adverse Reactions: Allergies Allergy/AdvReac Type Severity Reaction Status Date / Time No Known Allergies Allergy Unverified 01/26/17 22:33 - Home Medications Home Medications: Ambulatory Orders Trazodone HCl 25 mg PO BID 07/05/16 Ascorbic Acid [Vitamin C] 500 mg PO BID 11/11/16 Calcium Carbonate [Oyster Shell Calcium] 500 mg PO DAILY 11/11/16 Multivit with Iron,Minerals [Compete] 1 tab PO DAILY 11/11/16 Sennosides [Senna] 2 tab PO HS 11/11/16 Cholecalciferol (Vitamin D3) [Vitamin D3 -] 1,000 units PO DAILY 12/21/16 Magnesium Hydrox 2400MG/30Ml [Milk of Magnesia -] 30 ml PO DAILY PRN 12/21/16 Polyethylene Glycol 3350 [Miralax 119 gm Btl -] 17 gm PO TID PRN #1 bottle 12/23 Docusate Sodium [Colace -] 200 mg PO HS capsule 01/31/17 traZODone HCL [Desyrel -] 25 mg PO BID tablet 01/31/17 Rivaroxaban [Xarelto -] 15 mg PO DAILY 08/31/17 Review of Systems - Review of Systems Constitutional: denies: Chills, Fever Eyes: denies: Double Vision, Recent Change in Vision HENT: denies: Difficult Swallowing, Throat Pain Neck: denies: Decreased ROM, Pain on Movement Cardiovascular: denies: Chest Pain, Palpitations Respiratory: denies: Cough, SOB Gastrointestinal: reports: Bloating, Constipation. denies: Abdominal Pain Genitourinary: denies: Frequency, Hematuria Breasts: denies: Breast Implants, Discharge from Nipple Musculoskeletal: denies: Muscle Pain, Muscle Weakness Integumentary: denies: Erythema, Lesions, Rash Neurological: denies: Seizure, Syncope Endocrine: denies: Intolerance to Heat, Unexplained Weight Gain Hematology/Lymphatic: denies: Easily Bruised, Excessive Bleeding Psychiatric: denies: Anxiety, Depression Physical Exam Vital Signs: Vital Signs Temperature 96.2 F L 08/31/17 11:07 Pulse Rate 82 08/31/17 11:07 Respiratory Rate 20 08/31/17 11:07 Blood Pressure 122/63 08/31/17 11:07 O2 Sat by Pulse Oximetry (%) 99 08/31/17 12:09 Constitutional: Yes: No Distress, Calm, Obese Eyes: Yes: Conjunctiva Clear, EOM Intact HENT: Yes: Atraumatic, Normocephalic Neck: Yes: Supple, Trachea Midline Cardiovascular: Yes: Regular Rate and Rhythm, S1, S2 Respiratory: Yes: Regular, CTA Bilaterally Gastrointestinal: Yes: Normal Bowel Sounds, Soft, Abdomen, Obese, Distention ...Rectal Exam: Yes: Other (hard brown stool.). No: Hemorrhoids/External, Induration, Inflammation, Mass Renal/: No: CVA Tenderness - Left, CVA Tenderness - Right Musculoskeletal: No: Muscle Pain, Muscle Weakness Extremities: No: Cool, Cyanosis Edema: No Peripheral Pulses WNL: Yes Integumentary: No: Incision, Jaundice Neurological: Yes: Alert, Confusion Psychiatric: Yes: Alert Labs: CBC, BMP 08/31/17 11:50 08/31/17 11:50 Abnormal Lab Results 08/31/17 08/31/17 08/31/17 11:45 11:50 11:50 RDW 16.6 H Plt Count 466 H D PT with INR 13.50 H INR 1.19 H PTT (Actin FS) 26.0 L D VBG pH POC VBG pCO2 Potassium Anion Gap BUN Random Glucose Lactic Acid 3.1 H* AST Alkaline Phosphatase Albumin Ur Leukocyte Esterase 08/31/17 08/31/17 08/31/17 11:50 11:50 15:40 RDW Plt Count PT with INR INR PTT (Actin FS) VBG pH 7.10 L* POC VBG pCO2 72.4 H* Potassium 5.3 H Anion Gap 6 L BUN 32 H Random Glucose 127 H Lactic Acid AST 44 H Alkaline Phosphatase 178 H Albumin 2.9 L Ur Leukocyte Esterase 3+ H INR, PTT INR 1.19 (0.82-1.09) H 08/31/17 11:50 Imaging - Results Chest X-ray: Report Reviewed, Image Reviewed Cat Scan: Report Reviewed, Image Reviewed (recto-sigmoid stool impaction and distension) EKG: Report Reviewed, Image Reviewed (LBBB and ischemic changes) Problem List - Problems (1) Fecal impaction of colon Assessment/Plan: 86 yo female MMP chronic constipation with fecal impaction Diet as tolerated Manual disimpaction at bedside GI evaluation Bowel regimen Dulcolax supositories ordered will follow Thank you for the opportunity to participate in the care of this patient. Code(s): K56.41 - FECAL IMPACTION (2) Constipation Code(s): K59.00 - CONSTIPATION, UNSPECIFIED Qualifiers: Constipation type: other constipation type Qualified Code(s): K59.09 - Other constipation (3) Dementia Code(s): F03.90 - UNSPECIFIED DEMENTIA WITHOUT BEHAVIORAL DISTURBANCE (4) Lactic acid acidosis Code(s): E87.2 - ACIDOSIS
[2017-08-31] MEDS: MINERAL OIL ENEMA 133 ML ENEMA PR ONE ×2 (20:00→21:00)
[2017-08-31 20:28] VITALS: BMI 32.8
[2017-08-31] MEDS: SODIUM CHLORIDE 1,000 ML IV SCH (21:09)
[2017-08-31] MEDS: SENNOSIDES 8.6MG TABLET (FP) PO SCH (21:33)
[2017-08-31] MEDS: traZODone HCL 50 MG TABLET (FP) PO SCH (21:33)
[2017-09-01 07:11] LABS: BASO % 0.6 % (0-2.0); HEMATOCRIT 37.7 % (32.4-45.2); HEMOGLOBIN 12.5 GM/dL (10.7-15.3); LYMPH % 12.1 % (8-40); MCH 27.9 pg (25.7-33.7); MCHC 33.1 g/dl (32.0-36.0); MEAN CELL VOLUME 84.3 fl (80-96); MEAN PLT VOLUME 7.8 fl (7.5-11.1); NEUT % 78.3 % (42.8-82.8); PLATELET COUNT 411 K/MM3 (134-434); RBC 4.47 M/mm3 (3.60-5.2); RDW 16.1 % (11.6-15.6); WHITE BLOOD COUNT 9.2 K/mm3 (4.0-10.0)
[2017-09-01 07:35] LABS: CHLORIDE 112 mmol/L (98-107); POTASSIUM 4.4 mmol/L (3.5-5.1); SODIUM 146 mmol/L (136-145)
[2017-09-01 07:43] LABS: ALBUMIN 2.9 g/dl (3.4-5.0); ALK PHOS 173 U/L (45-117); ANION GAP 9 (8-16); BILIRUBIN,TOTAL 0.5 mg/dL (0.2-1.0); BLOOD UREA NITROGEN 24 mg/dL (7-18); CALCIUM 8.7 mg/dL (8.5-10.1); CO2 25 mmol/L (21-32); CREATININE 0.7 mg/dL (0.55-1.02); GLUCOSE,RANDOM 83 mg/dL (74-106); MAGNESIUM 2.4 mg/dL (1.8-2.4); PHOSPHOROUS 4.1 mg/dL (2.5-4.9); SGOT/AST 21 U/L (15-37); SGPT/ALT 22 U/L (12-78); TOT PROT 6.3 g/dl (6.4-8.2)
[2017-09-01] MEDS ORDERED: POLYETHYLENE GLYCOL 3350 119 GM BTL PO SCH (10:00)
[2017-09-01] MEDS ORDERED: PT OWN MED DRAWER 7, Y5N ONE (10:47)
[2017-09-01] MEDS ORDERED: BISACODYL 10 MG SUPP.RECT RC PRN (11:05)
[2017-09-01] MEDS: traZODone HCL 50 MG TABLET (FP) PO SCH ×2 (12:10→21:14)
[2017-09-01] MEDS: RIVAROXABAN 15 MG TABLET PO SCH (12:10)
--- NOTE | 2017-09-01 12:11 | PN ---
Progress Note, Physician Chief Complaint: Events noted has hard stools has abd pain good appetite - Current Medication List Current Medications: Active Medications Bisacodyl (Dulcolax Suppository -) 10 mg RC DAILY PRN PRN Reason: CONSTIPATION Sodium Chloride (Normal Saline -) 1,000 mls @ 75 mls/hr IV ASDIR [facility] Last Admin: 08/31/17 21:09 Dose: 75 mls/hr Polyethylene Glycol (Miralax (For Daily Use) -) 17 gm PO DAILY [facility] Rivaroxaban (Xarelto -) 15 mg PO DAILY [facility] Senna (Senna -) 2 tab PO HS [facility] Last Admin: 08/31/17 21:33 Dose: 2 tab Trazodone HCl (Desyrel -) 25 mg PO BID [facility] Last Admin: 08/31/17 21:33 Dose: 25 mg - Objective Vital Signs: Vital Signs Temperature 97.2 F L 09/01/17 05:45 Pulse Rate 80 09/01/17 05:45 Respiratory Rate 20 09/01/17 10:00 Blood Pressure 138/74 09/01/17 05:45 O2 Sat by Pulse Oximetry (%) 98 09/01/17 10:00 Constitutional: Yes: No Distress, Calm Cardiovascular: Yes: Regular Rate and Rhythm Respiratory: Yes: Diminished Gastrointestinal: Yes: Normal Bowel Sounds, Soft, Tenderness (left quadrant) Edema: No Psychiatric: Yes: Alert Labs: CBC, BMP 09/01/17 06:30 09/01/17 06:30 INR, PTT INR 1.19 (0.82-1.09) H 08/31/17 11:50 Problem List - Problems (1) Constipation Code(s): K59.00 - CONSTIPATION, UNSPECIFIED Qualifiers: Constipation type: other constipation type Qualified Code(s): K59.09 - Other constipation (2) Dementia Code(s): F03.90 - UNSPECIFIED DEMENTIA WITHOUT BEHAVIORAL DISTURBANCE (3) Fecal impaction of colon Code(s): K56.41 - FECAL IMPACTION Assessment/Plan PLAN Surgical eval noted Unable to fully disimpact Pt has abd tenderness GI eval continue with meds
[2017-09-01] MEDS ORDERED: LACTULOSE 20 GM/30 ML UDC (FOR ORAL USE ONLY) PO PRN (12:18)
--- NOTE | 2017-09-01 18:10 | CON.GI ---
Consult Consult Specialty:: GI: For Dr. Villa Referred by:: Cathy Shine Reason for Consultation:: Rectal bleeding - History of Present Illness Chief Complaint: Patient demented. DOes not give a chief complaint History of Present Illness: 86F transferred from [place] for evaluation of rectal bleeding. There has been no active bleeding but she has a significant fecal impaction noted on CT scan. She was evaluated by surgery and he ordered dulcolax suppositories. He also performed manual disimpaction. Per nursing she is on a pureed diet, miralax cannot be thickened nor can golytely. She is on xarelto for DVT. 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 Cardio/Vascular: Yes: Deep Vein Thrombosis (but not confirmed by 10/10/16 duplex doppler, has chronic LLE edema), HTN Gastrointestinal: Yes: Constipation, GERD Renal/: Yes: Hematuria Psych: Yes: Bipolar, Depression - Past Surgical History Past Surgical History: Yes: Cholecystectomy (Open), Hysterectomy, Joint Replacement (bilateral knee replacments) - Alcohol/Substance Use Hx Alcohol Use: No - Smoking History Smoking history: Former smoker Have you smoked in the past 12 months: No Aproximately how many cigarettes per day: 0 If you are a former smoker, when did you quit?: quit age 62 - Social History Usual Living Arrangement: [facility] ADL: Support Services 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 Travel: No Home Medications - Allergies Allergies/Adverse Reactions: Allergies Allergy/AdvReac Type Severity Reaction Status Date / Time No Known Allergies Allergy Unverified 01/26/17 22:33 - Home Medications Home Medications: Ambulatory Orders Trazodone HCl 25 mg PO BID 07/05/16 Ascorbic Acid [Vitamin C] 500 mg PO BID 11/11/16 Calcium Carbonate [Oyster Shell Calcium] 500 mg PO DAILY 11/11/16 Multivit with Iron,Minerals [Compete] 1 tab PO DAILY 11/11/16 Sennosides [Senna] 2 tab PO HS 11/11/16 Cholecalciferol (Vitamin D3) [Vitamin D3 -] 1,000 units PO DAILY 12/21/16 Magnesium Hydrox 2400MG/30Ml [Milk of Magnesia -] 30 ml PO DAILY PRN 12/21/16 Polyethylene Glycol 3350 [Miralax 119 gm Btl -] 17 gm PO TID PRN #1 bottle 12/23 Docusate Sodium [Colace -] 200 mg PO HS capsule 01/31/17 traZODone HCL [Desyrel -] 25 mg PO BID tablet 01/31/17 Rivaroxaban [Xarelto -] 15 mg PO DAILY 08/31/17 Family Disease History - Family Disease History Family History: Unable to Obtain Review of Systems Unable to obtain ROS, reason: Patient demented Physical Exam-GI Vital Signs: Vital Signs Temperature 97.8 F 09/01/17 14:55 Pulse Rate 75 09/01/17 14:55 Respiratory Rate 20 09/01/17 14:55 Blood Pressure 130/59 09/01/17 14:55 O2 Sat by Pulse Oximetry (%) 98 09/01/17 10:00 Constitutional: Yes: Calm Eyes: No: Sclera Icterus Cardiovascular: Yes: Other (heart sounds obscured by her verbalization) Respiratory: Yes: Diminished (at bases b/l with poor insp effort) Gastrointestinal Inspection: Yes: Hernia (+ right sided ventral hernia), Scars ( long obliquie right abdominal surgical scar) ...Auscultate: Yes: Normoactive Bowel Sounds ...Palpate: Yes: Tenderness (grimacing upon palpation of the right abdomen and pelvis). No: Hepatomegaly, Splenomegaly ...Percussion: No: Tympanitic ...Rectal Exam: Yes: Other (No external lesions, + fecal impaction: manually disimpacted. There was firm stool initially in the distal rectum, however the stool in the more proximal rectum was soft and not readily amenable to manual disimpaction.) Neurological: Yes: Alert Labs: CBC, BMP 09/01/17 06:30 09/01/17 06:30 INR, PTT INR 1.19 (0.82-1.09) H 08/31/17 11:50 Problem List - Problems (1) Constipation Assessment/Plan: Manual disimpaction attempeted by both myself and by surgery earlier today. In review of the CT scan the impaction seems to be more proximal in the rectum and sigmoid. This limits the effectiveness of manual disimpaction. SSE was administered this evening. If the distal fecal impaction can be improved and bowel movements facilitated and If Ms. Bales can tolerate clear liquids, bowel regimen from above such as magnesium citrate or golytely could be utilized. Check TSH Daily SSE Code(s): K59.00 - CONSTIPATION, UNSPECIFIED Qualifiers: Constipation type: other constipation type Qualified Code(s): K59.09 - Other constipation
[2017-09-01] MEDS: SENNOSIDES 8.6MG TABLET (FP) PO SCH (21:15)
[2017-09-01] MEDS: SODIUM CHLORIDE 1,000 ML IV SCH (21:18)
--- NOTE | 2017-09-02 08:19 | PN ---
Progress Note, Physician Chief Complaint: fecal impaction History of Present Illness: 86 yo female PMH CHF, dementia, and DVT on Xarelto presenting to the emergency department with rectal bleeding following enema administration at alf. stable after manual disimpaction. No BM reported after disimpation or soap suds enema - Current Medication List Current Medications: Active Medications Bisacodyl (Dulcolax Suppository -) 10 mg RC DAILY PRN PRN Reason: CONSTIPATION Sodium Chloride (Normal Saline -) 1,000 mls @ 75 mls/hr IV ASDIR [facility] Last Admin: 09/01/17 21:18 Dose: 75 mls/hr Lactulose (Cephulac (Oral Use)) 20 gm PO TID PRN PRN Reason: CONSTIPATION Rivaroxaban (Xarelto -) 15 mg PO DAILY [facility] Last Admin: 09/01/17 12:10 Dose: 15 mg Senna (Senna -) 2 tab PO HS [facility] Last Admin: 09/01/17 21:15 Dose: 2 tab Trazodone HCl (Desyrel -) 25 mg PO BID [facility] Last Admin: 09/01/17 21:14 Dose: 25 mg - Objective Vital Signs: Vital Signs Temperature 98.2 F 09/02/17 06:31 Pulse Rate 77 09/02/17 06:31 Respiratory Rate 20 09/02/17 06:31 Blood Pressure 133/81 09/02/17 06:31 O2 Sat by Pulse Oximetry (%) 98 09/02/17 02:00 Vital Signs Period Temp Pulse Resp BP Sys/Glaser Pulse Ox Last 24 Hr 97.8 F-98.2 F 66-82 20-20 130-137/59-81 98-98 Constitutional: Yes: Well Nourished, No Distress, Calm, Obese Eyes: Yes: Conjunctiva Clear, EOM Intact HENT: Yes: Atraumatic, Normocephalic Neck: Yes: Supple, Trachea Midline Cardiovascular: Yes: Regular Rate and Rhythm, S1, S2 Respiratory: Yes: Regular, CTA Bilaterally Gastrointestinal: Yes: Normal Bowel Sounds, Soft Genitourinary: No: CVA Tenderness - Left, CVA Tenderness - Right Extremities: No: Cool, Cyanosis Neurological: Yes: Alert, Confusion Psychiatric: Yes: Alert Labs: CBC, BMP 09/01/17 06:30 09/01/17 06:30 INR, PTT INR 1.19 (0.82-1.09) H 08/31/17 11:50 Problem List - Problems (1) Fecal impaction of colon Assessment/Plan: 86 yo female MMP chronic constipation with fecal impaction, appreciate GI reccommedations Diet as tolerated trend labs and replete electrolytes repeat manual disimpaction at bedside Bowel regimen per GI will follow Thank you for the opportunity to participate in the care of this patient. Code(s): K56.41 - FECAL IMPACTION (2) Constipation Code(s): K59.00 - CONSTIPATION, UNSPECIFIED Qualifiers: Constipation type: other constipation type Qualified Code(s): K59.09 - Other constipation (3) Dementia Code(s): F03.90 - UNSPECIFIED DEMENTIA WITHOUT BEHAVIORAL DISTURBANCE (4) Lactic acid acidosis Code(s): E87.2 - ACIDOSIS
[2017-09-02] MEDS ORDERED: PT OWN MED DRAWER 7, Y5N ONE (08:58)
[2017-09-02] MEDS: traZODone HCL 50 MG TABLET (FP) PO SCH ×2 (10:20→21:31)
[2017-09-02] MEDS: RIVAROXABAN 15 MG TABLET PO SCH (10:20)
[2017-09-02] MEDS ORDERED: LEVOTHYROXINE NA 25 MCG TABLET (FP) PO ONE (11:45)
--- NOTE | 2017-09-02 12:04 | PN ---
Progress Note (short form) - Note Progress Note: Chart reviewed. Events noted. No acute event overnight reported. The pt, non- communicative, but appears comfortable. Has small BM since last evening. Scheduled to receive a tap water enema this am. Unremarkable abdomen on physical exam. No rectal bleeding. Will continue current care, TWE in the evening. Observe.
[2017-09-02] MEDS ORDERED: MAGNESIUM CITRATE 300 ML BOTTLE PO PRN (12:10)
--- NOTE | 2017-09-02 12:13 | PN ---
Progress Note, Physician Chief Complaint: small bm after enema yesterday stool is proximal , hard difficult disimpaction - Current Medication List Current Medications: Active Medications Bisacodyl (Dulcolax Suppository -) 10 mg RC DAILY PRN PRN Reason: CONSTIPATION Sodium Chloride (Normal Saline -) 1,000 mls @ 75 mls/hr IV ASDIR [facility] Last Admin: 09/01/17 21:18 Dose: 75 mls/hr Levofloxacin (Levaquin 500 Mg Premixed Ivpb -) 500 mg in 100 mls @ 100 mls/hr IVPB ONCE ONE; Protocol Stop: 09/02/17 12:44 Lactulose (Cephulac (Oral Use)) 20 gm PO TID PRN PRN Reason: CONSTIPATION Levothyroxine Sodium (Synthroid -) 25 mcg PO DAILY@0700 [facility] Magnesium Citrate (Citroma -) 300 ml PO Q48H PRN PRN Reason: CONSTIPATION Rivaroxaban (Xarelto -) 15 mg PO DAILY [facility] Last Admin: 09/02/17 10:20 Dose: 15 mg Senna (Senna -) 2 tab PO HS [facility] Last Admin: 09/01/17 21:15 Dose: 2 tab Trazodone HCl (Desyrel -) 25 mg PO BID [facility] Last Admin: 09/02/17 10:20 Dose: 25 mg - Objective Vital Signs: Vital Signs Temperature 98.2 F 09/02/17 06:31 Pulse Rate 77 09/02/17 06:31 Respiratory Rate 20 09/02/17 10:00 Blood Pressure 133/81 09/02/17 06:31 O2 Sat by Pulse Oximetry (%) 98 09/02/17 02:00 Constitutional: Yes: No Distress Cardiovascular: Yes: Pulse Irregular Respiratory: Yes: CTA Bilaterally Gastrointestinal: Yes: Normal Bowel Sounds, Soft, Hernia. No: Tenderness Edema: No Labs: CBC, BMP 09/01/17 06:30 09/01/17 06:30 INR, PTT INR 1.19 (0.82-1.09) H 08/31/17 11:50 Problem List - Problems (1) Constipation Code(s): K59.00 - CONSTIPATION, UNSPECIFIED Qualifiers: Constipation type: other constipation type Qualified Code(s): K59.09 - Other constipation (2) Dementia Code(s): F03.90 - UNSPECIFIED DEMENTIA WITHOUT BEHAVIORAL DISTURBANCE (3) Fecal impaction of colon Code(s): K56.41 - FECAL IMPACTION Assessment/Plan PLAN Surgical and GI eval noted Unable to fully disimpact start Mag Citrate stool is more proximal , enemas are not helping continue with meds
--- NOTE | 2017-09-02 14:31 | PN ---
Progress Note, Physician Chief Complaint: fecal impaction History of Present Illness: 86 yo female PMH CHF, dementia, and DVT on Xarelto presenting to the emergency department with rectal bleeding following enema administration at retirement. stable after manual disimpaction. No additional BM noted. - Current Medication List Current Medications: Active Medications Bisacodyl (Dulcolax Suppository -) 10 mg RC DAILY PRN PRN Reason: CONSTIPATION Sodium Chloride (Normal Saline -) 1,000 mls @ 75 mls/hr IV ASDIR [facility] Last Admin: 09/01/17 21:18 Dose: 75 mls/hr Lactulose (Cephulac (Oral Use)) 20 gm PO TID PRN PRN Reason: CONSTIPATION Levothyroxine Sodium (Synthroid -) 25 mcg PO DAILY@0700 [facility] Magnesium Citrate (Citroma -) 300 ml PO Q48H PRN PRN Reason: CONSTIPATION Last Admin: 09/02/17 14:23 Dose: 300 ml Rivaroxaban (Xarelto -) 15 mg PO DAILY [facility] Last Admin: 09/02/17 10:20 Dose: 15 mg Senna (Senna -) 2 tab PO HS [facility] Last Admin: 09/01/17 21:15 Dose: 2 tab Trazodone HCl (Desyrel -) 25 mg PO BID [facility] Last Admin: 09/02/17 10:20 Dose: 25 mg - Objective Vital Signs: Vital Signs Temperature 98.2 F 09/02/17 06:31 Pulse Rate 77 09/02/17 06:31 Respiratory Rate 20 09/02/17 10:00 Blood Pressure 133/81 09/02/17 06:31 O2 Sat by Pulse Oximetry (%) 98 09/02/17 02:00 Vital Signs Period Temp Pulse Resp BP Sys/Glaser Pulse Ox Last 24 Hr 97.8 F-98.2 F 66-82 20-20 130-137/59-81 98 Constitutional: Yes: No Distress, Calm, Obese Eyes: Yes: Conjunctiva Clear, EOM Intact HENT: Yes: Atraumatic, Normocephalic Labs: CBC, BMP 09/01/17 06:30 09/01/17 06:30 INR, PTT INR 1.19 (0.82-1.09) H 08/31/17 11:50 Problem List - Problems (1) Fecal impaction of colon Assessment/Plan: 86 yo female MMP chronic constipation with fecal impaction, appreciate GI reccomendations Diet as tolerated repeat manual disimpaction at bedside Bowel regimen per GI will follow Code(s): K56.41 - FECAL IMPACTION (2) Constipation Code(s): K59.00 - CONSTIPATION, UNSPECIFIED Qualifiers: Constipation type: other constipation type Qualified Code(s): K59.09 - Other constipation (3) Dementia Code(s): F03.90 - UNSPECIFIED DEMENTIA WITHOUT BEHAVIORAL DISTURBANCE (4) Lactic acid acidosis Code(s): E87.2 - ACIDOSIS
[2017-09-02] MEDS: SENNOSIDES 8.6MG TABLET (FP) PO SCH (21:31)
[2017-09-02] MEDS: SODIUM CHLORIDE 1,000 ML IV SCH (21:35)
[2017-09-03] MEDS ORDERED: LEVOTHYROXINE NA 25 MCG TABLET (FP) PO SCH (07:00)
--- NOTE | 2017-09-03 07:45 | PN ---
Progress Note, Physician Chief Complaint: fecal impaction History of Present Illness: 86 yo female PMH CHF, dementia, and DVT on Xarelto presenting to the emergency department with rectal bleeding following enema administration at [facility]. stable after manual disimpaction. passed a large soft bowel movement. tolerating soft diet. - Current Medication List Current Medications: Active Medications Bisacodyl (Dulcolax Suppository -) 10 mg RC DAILY PRN PRN Reason: CONSTIPATION Sodium Chloride (Normal Saline -) 1,000 mls @ 75 mls/hr IV ASDIR [facility] Last Admin: 09/02/17 21:35 Dose: 75 mls/hr Lactulose (Cephulac (Oral Use)) 20 gm PO TID PRN PRN Reason: CONSTIPATION Levothyroxine Sodium (Synthroid -) 25 mcg PO DAILY@0700 [facility] Last Admin: 09/03/17 06:20 Dose: 25 mcg Magnesium Citrate (Citroma -) 300 ml PO Q48H PRN PRN Reason: CONSTIPATION Last Admin: 09/02/17 14:23 Dose: 300 ml Rivaroxaban (Xarelto -) 15 mg PO DAILY [facility] Last Admin: 09/02/17 10:20 Dose: 15 mg Senna (Senna -) 2 tab PO HS [facility] Last Admin: 09/02/17 21:31 Dose: 2 tab Trazodone HCl (Desyrel -) 25 mg PO BID [facility] Last Admin: 09/02/17 21:31 Dose: 25 mg - Objective Vital Signs: Vital Signs Temperature 98.4 F 09/03/17 06:15 Pulse Rate 84 09/03/17 06:15 Respiratory Rate 20 09/03/17 06:15 Blood Pressure 145/73 09/03/17 06:15 O2 Sat by Pulse Oximetry (%) 98 09/03/17 02:00 Vital Signs Period Temp Pulse Resp BP Sys/Glaser Pulse Ox Last 24 Hr 97.6 F-98.4 F 76-98 20-22 130-145/73-90 98-98 Intake & Output 09/02/17 09/02/17 09/03/17 15:59 23:59 07:59 Intake Total 525 200 900 Output Total 1 Balance 524 200 900 Weight 174 lb 8 oz Intake: IV 900 Normal Saline - 1,000 ml 900 @ 75 mls/hr IV ASDIR WILMER Rx#:[id number] IVPB 100 Oral 425 200 Output: Urine 1 Void 1 Other: Voiding Method Incontinent Incontinent Incontinent # Unmeasured Voids Straight Cath 2 Void 2 Bowel Movement Yes Yes # Bowel Movements 1 1 Weight Measurement Method Built in [facility] Constitutional: Yes: Well Nourished, No Distress, Calm, Obese Eyes: Yes: Conjunctiva Clear, EOM Intact HENT: Yes: Atraumatic, Normocephalic Neck: Yes: Supple, Trachea Midline Cardiovascular: Yes: Regular Rate and Rhythm, S1, S2 Respiratory: Yes: Regular, CTA Bilaterally Gastrointestinal: Yes: Normal Bowel Sounds, Soft. No: Distention, Tenderness, Tenderness, Epigastrium ...Rectal Exam: Yes: Deferred Genitourinary: No: CVA Tenderness - Left, CVA Tenderness - Right Musculoskeletal: No: Muscle Pain, Muscle Weakness Extremities: No: Cool, Cyanosis Edema: No Peripheral Pulses WNL: Yes Peripheral Pulses: Left Radial: 2+, Right Radial: 2+, Left Doralis Pedis: 2+, Right Dorsalis Pedis: 2+ Neurological: Yes: Alert, Confusion Psychiatric: Yes: Alert Labs: CBC, BMP 09/01/17 06:30 09/01/17 06:30 INR, PTT INR 1.19 (0.82-1.09) H 08/31/17 11:50 Problem List - Problems (1) Fecal impaction of colon Assessment/Plan: 86 yo female MMP chronic constipation with fecal impaction, appreciated GI reccommedations. No need for surgical intervention. Advance diet as tolerated Replete electrolytes Bowel regimen per GI Please recall as needed Code(s): K56.41 - FECAL IMPACTION (2) Constipation Code(s): K59.00 - CONSTIPATION, UNSPECIFIED Qualifiers: Constipation type: other constipation type Qualified Code(s): K59.09 - Other constipation (3) Dementia Code(s): F03.90 - UNSPECIFIED DEMENTIA WITHOUT BEHAVIORAL DISTURBANCE (4) Lactic acid acidosis Code(s): E87.2 - ACIDOSIS
--- NOTE | 2017-09-03 11:36 | DS ---
Physical Examination Vital Signs: Vital Signs Temperature 98.4 F 09/03/17 06:15 Pulse Rate 84 09/03/17 06:15 Respiratory Rate 20 09/03/17 06:15 Blood Pressure 145/73 09/03/17 06:15 O2 Sat by Pulse Oximetry (%) 98 09/03/17 02:00 Constitutional: Yes: No Distress, Calm Cardiovascular: Yes: Regular Rate and Rhythm Respiratory: Yes: Diminished Gastrointestinal: Yes: Normal Bowel Sounds, Soft, Abdomen, Obese. No: Tenderness Edema: No Labs: CBC, BMP 09/01/17 06:30 09/01/17 06:30 Discharge Summary Reason For Visit: Rectal Bleed Hospital Course: Sent from CT for rectal bleed- found to have proximal rectosigmaio fecal impaction and moderate left hydroureter due to the fecal impaction on CT abdomen done in ER Seen by Surgery and GI Manually disimpacted, she received Mag citrate yesterday and had a very large BM Abd is soft She was also started on IV antibiotics for UTI she will need a follow up CT abd afterwards She is dc to CT on PO antibiotics for UTI and a good bowel regimen. She also has hypothyroidism-- needs to get TSH repeated Stable for dc to CT Condition: Stable - Instructions Referrals: Edenilson Walters [Primary Care Provider] - Disposition: [facility]F-WAY FACILITY - Home Medications Comprehensive Discharge Medication List: Ambulatory Orders Trazodone HCl 25 mg PO BID 07/05/16 Ascorbic Acid [Vitamin C] 500 mg PO BID 11/11/16 Calcium Carbonate [Oyster Shell Calcium] 500 mg PO DAILY 11/11/16 Multivit with Iron,Minerals [Compete] 1 tab PO DAILY 11/11/16 Sennosides [Senna] 2 tab PO HS 11/11/16 Cholecalciferol (Vitamin D3) [Vitamin D3 -] 1,000 units PO DAILY 12/21/16 Magnesium Hydrox 2400MG/30Ml [Milk of Magnesia -] 30 ml PO DAILY PRN 12/21/16 Polyethylene Glycol 3350 [Miralax 119 gm Btl -] 17 gm PO TID PRN #1 bottle 12/23 Docusate Sodium [Colace -] 200 mg PO HS capsule 01/31/17 traZODone HCL [Desyrel -] 25 mg PO BID tablet 01/31/17 Rivaroxaban [Xarelto -] 15 mg PO DAILY 08/31/17
[2017-09-03] MEDS ORDERED: PT OWN MED DRAWER 7, Y5N ONE (12:02)
[2017-09-03] MEDS: traZODone HCL 50 MG TABLET (FP) PO SCH (12:04)
[2017-09-03] MEDS: RIVAROXABAN 15 MG TABLET PO SCH (12:04)
[2017-09-03 16:10] VITALS: BP 147/74; PULSE 92; TEMP 99.2
== END 2017-09-03 17:36 ==
LOC: JER 10:55 → UNDOADMOB 16:44 → JERBED 16:44 → INTOOBSV 16:44 → J6S 18:20 → JERBED 18:45 → J6S 18:45
PROVIDERS: ADMIT Internal Medicine; ATTEND Internal Medicine
PROC: 3E03329 Introduction of Other Anti-infective into Peripheral Vein, Percutaneous Approach (ICD-10-PCS; principal; 2017-08-31)
PROC: 3E033NZ Introduction of Analgesics, Hypnotics, Sedatives into Peripheral Vein, Percutaneous Approach (ICD-10-PCS; 2017-08-31)
PROC: 3E0337Z Introduction of Electrolytic and Water Balance Substance into Peripheral Vein, Percutaneous Approach (ICD-10-PCS; 2017-08-31)
DX: K56.41 Fecal impaction (principal); K59.09 Other constipation; E87.2 Acidosis; I11.0 Hypertensive heart disease with heart failure; I50.9 Heart failure, unspecified; F03.90 Unspecified dementia, unspecified severity, without behavioral disturbance, psychotic disturbance, mood disturbance, and anxiety; K21.9 Gastro-esophageal reflux disease without esophagitis; Z87.891 Personal history of nicotine dependence; Z87.440 Personal history of urinary (tract) infections; Z79.01 Long term (current) use of anticoagulants
CPT/HCPCS: 36415; 71045-TC-FY; 74177-TC; 80053; 81003; 81015; 82272; 82803; 83605; 83735; 84100; 84443; 84484; 85025; 85610; 85730; 87040; 87086; 87186; 93005; 93010; 96361; 96365; 96375; 97161-GP; 99283-25; G0378; J7030

== ENCOUNTER 2020-05-18 07:07 | Inpatient (IN) | payer OTHER ==
[2020-05-18 08:07] VITALS: BMI 30.2
[2020-05-18] MEDS ORDERED: LACTATED RINGERS SOLUTION 1000 ML INFUS.BAG IV ONE (08:32)
[2020-05-18 08:56] LABS: BASO % 0.8 % (0-2.0); EOS % 2.8 % (0-4.5); HEMATOCRIT 38.4 % (32.4-45.2); HEMOGLOBIN 12.8 GM/dL (10.7-15.3); LYMPH % 22.2 % (8-40); MCH 29.7 pg (25.7-33.7); MCHC 33.3 g/dl (32.0-36.0); MEAN CELL VOLUME 89.5 fl (80-96); MEAN PLT VOLUME 8.4 fl (7.5-11.1); MONO % 10.3 % (3.8-10.2); NEUT % 63.9 % (42.8-82.8); PLATELET COUNT 357 K/MM3 (134-434); RBC 4.29 M/mm3 (3.60-5.2); RDW 14.4 % (11.6-15.6); RETICULOCYTES 1.85 % (0.5-1.5); WHITE BLOOD COUNT 10.2 K/mm3 (4.0-10.0)
[2020-05-18 09:02] LABS: INR 1.86 (0.83-1.09); PROTHROMBIN TIME (PATIENT) 22.1 SEC (9.7-13.0)
[2020-05-18 09:04] LABS: ACTIVATED PTT 36.6 SECONDS (25.2-36.5)
[2020-05-18 09:12] LABS: CALCIUM 8.9 mg/dL (8.5-10.1)
[2020-05-18 09:13] LABS: ALBUMIN 2.6 g/dl (3.4-5.0); BLOOD UREA NITROGEN 36.2 mg/dL (7-18)
[2020-05-18 09:15] LABS: CREATININE 0.7 mg/dL (0.55-1.3)
[2020-05-18 09:18] LABS: BILIRUBIN,TOTAL 0.6 mg/dL (0.2-1); TOT PROT 6.2 g/dl (6.4-8.2)
[2020-05-18] MEDS ORDERED: PANTOPRAZOLE SODIUM 40 MG VIAL IVPUSH ONE (10:40)
[2020-05-18] MEDS ORDERED: PANTOPRAZOLE SODIUM 40 MG VIAL ONE (11:49)
[2020-05-18] MEDS ORDERED: ACETAMINOPHEN 1000 MG/100 ML VIAL (NON FORMULARY) IVPB PRN (13:22)
[2020-05-18] MEDS: DEXTROSE 5%-0.45% SALINE 1,000 ML IV SCH (15:51)
[2020-05-18] MEDS ORDERED: SENNOSIDES 8.6MG TABLET (FP) PO SCH (22:00)
[2020-05-18 22:14] LABS: BASO % 0.3 % (0-2.0); EOS % 1.9 % (0-4.5); HEMATOCRIT 34.3 % (32.4-45.2); LYMPH % 18.2 % (8-40); MCH 29.1 pg (25.7-33.7); MCHC 32.1 g/dl (32.0-36.0); MEAN CELL VOLUME 90.6 fl (80-96); MEAN PLT VOLUME 8.6 fl (7.5-11.1); MONO % 9.6 % (3.8-10.2); PLATELET COUNT 366 K/MM3 (134-434); RBC 3.79 M/mm3 (3.60-5.2); RDW 14.4 % (11.6-15.6); WHITE BLOOD COUNT 12.7 K/mm3 (4.0-10.0)
[2020-05-18] MEDS ORDERED: LORazepam 2 MG/ML SDV VIAL IVPUSH ONE (22:28)
[2020-05-18] MEDS ORDERED: LORazepam 2 MG/ML SDV VIAL ONE (23:07)
[2020-05-18] MEDS: DOCUSATE SODIUM 100 MG CAPSULE (FP) PO SCH (23:12)
[2020-05-18] MEDS: MELATONIN 1 MG TABLET PO SCH (23:12)
[2020-05-19] MEDS: LEVOTHYROXINE NA 25 MCG TABLET (FP) PO SCH (06:38)
[2020-05-19 08:09] LABS: BASO % 0.4 % (0-2.0); EOS % 1.3 % (0-4.5); HEMOGLOBIN 10.3 GM/dL (10.7-15.3); LYMPH % 12.5 % (8-40); MCH 29.9 pg (25.7-33.7); MCHC 33.2 g/dl (32.0-36.0); MEAN PLT VOLUME 8.7 fl (7.5-11.1); MONO % 7.1 % (3.8-10.2); NEUT % 78.7 % (42.8-82.8); PLATELET COUNT 356 K/MM3 (134-434); RBC 3.44 M/mm3 (3.60-5.2); RDW 14.5 % (11.6-15.6); WHITE BLOOD COUNT 11.8 K/mm3 (4.0-10.0)
[2020-05-19 08:33] LABS: CALCIUM 8.4 mg/dL (8.5-10.1)
[2020-05-19 08:34] LABS: ALBUMIN 2.7 g/dl (3.4-5.0); BLOOD UREA NITROGEN 28.7 mg/dL (7-18)
[2020-05-19 08:37] LABS: CREATININE 0.6 mg/dL (0.55-1.3)
[2020-05-19 08:38] LABS: BILIRUBIN,TOTAL 0.4 mg/dL (0.2-1); TOT PROT 5.7 g/dl (6.4-8.2)
[2020-05-19] MEDS ORDERED: ESCITALOPRAM OXALATE 10 MG TABLET ONE (09:11)
[2020-05-19] MEDS: POLYETHYLENE GLYCOL 3350 119 GM BTL PO SCH ×2 (10:27→21:06)
[2020-05-19] MEDS: PANTOPRAZOLE SODIUM 40 MG VIAL IVPUSH SCH (10:27)
[2020-05-19] MEDS: ESCITALOPRAM OXALATE 20 MG TABLET PO SCH ×2 (10:27→10:49)
[2020-05-19] MEDS: DEXTROSE 5%-0.45% SALINE 1,000 ML IV SCH (13:50)
[2020-05-19] MEDS: ACETAMINOPHEN 325 MG TABLET (FP) PO PRN (20:56)
[2020-05-19] MEDS: MELATONIN 1 MG TABLET PO SCH (21:01)
[2020-05-19] MEDS: DOCUSATE SODIUM 100 MG CAPSULE (FP) PO SCH (21:06)
[2020-05-20] MEDS: DEXTROSE 5%-0.45% SALINE 1,000 ML IV SCH ×2 (01:14→13:30)
[2020-05-20] MEDS: LEVOTHYROXINE NA 25 MCG TABLET (FP) PO SCH (06:48)
[2020-05-20] MEDS ORDERED: ESCITALOPRAM OXALATE 10 MG TABLET ONE (08:30)
[2020-05-20 08:32] LABS: BASO % 0.1 % (0-2.0); EOS % 2.6 % (0-4.5); HEMATOCRIT 28.8 % (32.4-45.2); HEMOGLOBIN 9.5 GM/dL (10.7-15.3); LYMPH % 19.5 % (8-40); MCH 29.9 pg (25.7-33.7); MCHC 33.1 g/dl (32.0-36.0); MEAN CELL VOLUME 90.4 fl (80-96); MEAN PLT VOLUME 8.2 fl (7.5-11.1); MONO % 7.8 % (3.8-10.2); PLATELET COUNT 325 K/MM3 (134-434); RBC 3.18 M/mm3 (3.60-5.2); RDW 14.5 % (11.6-15.6); WHITE BLOOD COUNT 9.7 K/mm3 (4.0-10.0)
[2020-05-20 08:50] LABS: ALBUMIN 2.5 g/dl (3.4-5.0); BLOOD UREA NITROGEN 18.8 mg/dL (7-18); CALCIUM 8.4 mg/dL (8.5-10.1)
[2020-05-20 08:53] LABS: BILIRUBIN,TOTAL 0.4 mg/dL (0.2-1); CREATININE 0.5 mg/dL (0.55-1.3)
[2020-05-20 08:55] LABS: TOT PROT 5.3 g/dl (6.4-8.2)
[2020-05-20] MEDS: ESCITALOPRAM OXALATE 20 MG TABLET PO SCH (10:16)
[2020-05-20] MEDS: PANTOPRAZOLE SODIUM 40 MG VIAL IVPUSH SCH (10:17)
[2020-05-20] MEDS: POLYETHYLENE GLYCOL 3350 119 GM BTL PO SCH ×2 (10:17→21:15)
[2020-05-20] MEDS: risperiDONE 0.25 MG TABLET PO SCH ×2 (13:11→21:18)
[2020-05-20] MEDS: LORazepam 2 MG/ML SDV VIAL IVPUSH PRN (16:07)
[2020-05-20] MEDS: DOCUSATE SODIUM 100 MG CAPSULE (FP) PO SCH (21:15)
[2020-05-20] MEDS: ACETAMINOPHEN 325 MG TABLET (FP) PO PRN (21:18)
[2020-05-20] MEDS: MELATONIN 1 MG TABLET PO SCH (21:18)
[2020-05-21] MEDS: DEXTROSE 5%-0.45% SALINE 1,000 ML IV SCH (02:29)
[2020-05-21] MEDS: risperiDONE 0.25 MG TABLET PO SCH ×3 (06:13→21:21)
[2020-05-21] MEDS: LEVOTHYROXINE NA 25 MCG TABLET (FP) PO SCH (06:13)
[2020-05-21 09:30] LABS: BASO % 0.5 % (0-2.0); EOS % 2.6 % (0-4.5); HEMATOCRIT 28.5 % (32.4-45.2); HEMOGLOBIN 9.3 GM/dL (10.7-15.3); LYMPH % 17.4 % (8-40); MCH 29.9 pg (25.7-33.7); MCHC 32.8 g/dl (32.0-36.0); MEAN CELL VOLUME 91.1 fl (80-96); MEAN PLT VOLUME 8.4 fl (7.5-11.1); MONO % 7.2 % (3.8-10.2); NEUT % 72.3 % (42.8-82.8); PLATELET COUNT 310 K/MM3 (134-434); RBC 3.13 M/mm3 (3.60-5.2); RDW 14.5 % (11.6-15.6); WHITE BLOOD COUNT 8.7 K/mm3 (4.0-10.0)
[2020-05-21] MEDS: POLYETHYLENE GLYCOL 3350 119 GM BTL PO SCH ×2 (09:40→21:29)
[2020-05-21] MEDS ORDERED: ESCITALOPRAM OXALATE 10 MG TABLET ONE (09:42)
[2020-05-21] MEDS: PANTOPRAZOLE SODIUM 40 MG VIAL IVPUSH SCH (09:56)
[2020-05-21] MEDS: ESCITALOPRAM OXALATE 20 MG TABLET PO SCH (09:56)
[2020-05-21 09:59] LABS: ALBUMIN 2.5 g/dl (3.4-5.0); CALCIUM 8.1 mg/dL (8.5-10.1)
[2020-05-21 10:02] LABS: CREATININE 0.6 mg/dL (0.55-1.3)
[2020-05-21 10:03] LABS: BILIRUBIN,TOTAL 0.4 mg/dL (0.2-1)
[2020-05-21 10:06] LABS: TOT PROT 5.4 g/dl (6.4-8.2)
[2020-05-21] MEDS ORDERED: ACETAMINOPHEN 325 MG TABLET (FP) PO PRN (11:26)
[2020-05-21] MEDS ORDERED: DEXTROSE 5%-0.45% SALINE 1,000 ML IV SCH (11:26)
[2020-05-21] MEDS ORDERED: PT OWN MED DRAWER 7, Y5N ONE (13:10)
[2020-05-21] MEDS: LORazepam 2 MG/ML SDV VIAL IVPUSH PRN (21:23)
[2020-05-21] MEDS ORDERED: DOCUSATE SODIUM 100 MG CAPSULE (FP) PO SCH (22:00)
[2020-05-21] MEDS ORDERED: MELATONIN 1 MG TABLET PO SCH (22:00)
[2020-05-22] MEDS: risperiDONE 0.25 MG TABLET PO SCH (06:13)
[2020-05-22] MEDS ORDERED: LEVOTHYROXINE NA 25 MCG TABLET (FP) PO SCH (07:00)
[2020-05-22 07:53] LABS: BASO % 0.6 % (0-2.0); EOS % 2.9 % (0-4.5); HEMATOCRIT 26.1 % (32.4-45.2); HEMOGLOBIN 8.6 GM/dL (10.7-15.3); LYMPH % 14.4 % (8-40); MCH 29.9 pg (25.7-33.7); MCHC 33.2 g/dl (32.0-36.0); MEAN CELL VOLUME 90.1 fl (80-96); MEAN PLT VOLUME 8.2 fl (7.5-11.1); MONO % 7.2 % (3.8-10.2); NEUT % 74.9 % (42.8-82.8); PLATELET COUNT 303 K/MM3 (134-434); RBC 2.89 M/mm3 (3.60-5.2); RDW 14.6 % (11.6-15.6); WHITE BLOOD COUNT 8.9 K/mm3 (4.0-10.0)
[2020-05-22] MEDS ORDERED: PANTOPRAZOLE SODIUM 40 MG VIAL IVPUSH SCH (10:00)
[2020-05-22] MEDS ORDERED: ESCITALOPRAM OXALATE 20 MG TABLET PO SCH (10:00)
[2020-05-22] MEDS: POLYETHYLENE GLYCOL 3350 119 GM BTL PO SCH (10:10)
[2020-05-22] MEDS ORDERED: ESCITALOPRAM OXALATE 10 MG TABLET ONE (10:19)
[2020-05-22] MEDS ORDERED: risperiDONE 0.25 MG TABLET PO SCH (12:55)
[2020-05-22 18:35] VITALS: BP 145/79; PULSE 87; TEMP 97.8
== END 2020-05-22 19:29 | DRG 378 ==
LOC: JER 07:07 → JERBED 12:05 → J4S 05-19 00:40
PROVIDERS: ADMIT Internal Medicine; ATTEND Internal Medicine
DX: K62.5 Hemorrhage of anus and rectum (principal); R71.0 Precipitous drop in hematocrit; I10 Essential (primary) hypertension; F03.90 Unspecified dementia, unspecified severity, without behavioral disturbance, psychotic disturbance, mood disturbance, and anxiety; K21.9 Gastro-esophageal reflux disease without esophagitis; Z86.718 Personal history of other venous thrombosis and embolism; Z79.01 Long term (current) use of anticoagulants; Z66 Do not resuscitate; E03.9 Hypothyroidism, unspecified; E66.9 Obesity, unspecified; Z68.30 Body mass index [BMI] 30.0-30.9, adult; K56.41 Fecal impaction
CPT/HCPCS: 36415; 74176-TC; 80053; 82272; 83605; 85025; 85045; 85610; 85730; 86850; 86870; 86900; 86901; 86902; 93005; 93010; 99285-25; C9803; U0003; U0005